=== PATIENT | female | born 1945 | race Caucasian/White ===

== ENCOUNTER 2017-10-29 08:37 | Day surgery (SDC) | payer MEDICARE, BC ==
--- NOTE | 2017-10-20 08:27 | HP ---
CC: Dr. Ruslan Martinez * ADMISSION HISTORY AND PHYSICAL: DATE OF ADMISSION: 10/29/17 ATTENDING SURGEON: Dr. Pete Guajardo.* (DICTATED BY CHLOE MATAMOROS) CHIEF COMPLAINT: Symptomatic cholelithiasis. HISTORY OF PRESENT ILLNESS: This is a 72-year-old female, who reports a 1- to 2 - year history of intermittent right upper quadrant abdominal pain. This typically occurs postprandially and especially after high-fat meals. She describes discomfort with some bloating, gassiness, and queasiness with radiation to the back. She denies fever, chills, nausea, vomiting, or change in the color of her urine. She does typically experience multiple loose stools with these episodes. An ultrasound in the office by Dr. De La Rosa did initially reveal a gallstone and subsequent repeat ultrasound ordered by done on 08/28/17 showed mild fatty changes of the liver consistent with steatosis. Also noted was a 3.2-cm gallstone increased in size from prior study of 2011. There were no sonographic signs of acute cholecystitis. The gallbladder wall was measured at 2.5 mm. Common bile duct was normal in size. Liver function tests had been done on 08/24/17 and were within normal limits. The patient was seen in the office by Dr. Guajardo on 09/16/17. She did have some mild right upper quadrant tenderness at that time, but has had no significant changes in the interim. He has discussed with her the indications for surgery, the risks, benefits, and alternatives. She understands the expected perioperative course and would like to proceed as scheduled with laparoscopic cholecystectomy. PAST MEDICAL HISTORY: Hypertension, hyperlipidemia, type 2 diabetes, nephrolithiasis, osteoarthritis, cervical radiculopathy, vertigo, history of hemorrhoids, carpal tunnel syndrome. She also recently underwent I and D of a left thumb abscess, where she also has a wart and is anticipating removal of the wart and carpal tunnel release in the near future with Dr. Condon. PAST SURGICAL HISTORY: Previous surgeries include tubal ligation, stereotactic left breast biopsy (for benign disease), lithotripsy for nephrolithiasis. No reported surgical or anesthesia complications. CURRENT MEDICATIONS: 1. Losartan/hydrochlorothiazide 50/12.5 once daily. 2. Amitriptyline 25 mg q. day. 3. Aspirin 81 mg q. day (she will hold preoperatively, her last dose being ). 4. Metformin 500 mg 1 tablet once daily. 5. Lovaza 1 g once daily. 6. Vitamin D3 5000 International Units once daily. 7. CoQ10 30 mg once daily. 8. Zinc 50 mg once daily. 9. Tramadol 50 mg q.6 hours p.r.n. (uses rarely). 10. Motrin 200 mg 2 tablets q. day p.r.n. for arthritis pain. DRUG ALLERGIES: PENICILLIN (rash) (she has taken amoxicillin without any problem). FAMILY HISTORY: Negative for anesthesia problems, bleeding, or clotting disorder. SOCIAL HISTORY: She is . She is a former smoker, who quit in 1982. She denied use of alcohol or recreational drugs. REVIEW OF SYSTEMS: General: No recent constitutional symptoms or acute illnesses. Weight has been stable. She did undergo a recent I and D of the left thumb abscess as noted above. Eyes: No recent changes. No history of glaucoma. Ears, Nose, Throat: No problems reported other than she has some lower teeth that she feels may need to be removed. She does use a full upper denture. Cardiovascular: No history of MT or angina. She is treated for hypertension. No history of murmur or palpitations. Respiratory: No history of asthma, chronic cough, or shortness of breath. GI: As above per HPI. Colonoscopy done within the past year with benign polyps removed and recommended followup in 3 years. : She is followed by Dr. De La Rosa for kidney stones. No recent problems reported. Endocrine: She had a history of thyroid nodules, which have been followed. She is type 2 diabetic, though on metformin only and most recent hemoglobin A1c had been in the 5 to 6 range. Neurological : No additions. Musculoskeletal: Osteoarthritis, carpal tunnel syndrome. No additions. Remainder of review of systems is negative. MANAGER RESEARCH DEVELOPMENT: She no longer has pelvic exams done. Her current mammogram is scheduled for 10/28/17. Her last breast exam was in the past 1 to 2 years with no interval problems reported. PHYSICAL EXAMINATION GENERAL: Well-nourished, well-developed mildly obese female, in no acute distress. VITAL SIGNS: Height 60 inches, weight 146 pounds, temperature 98.8, blood pressure 118/72, pulse 98, respirations 16. HEENT: Pupils are equal and round, reactive. EOMs intact. No conjunctival pallor or scleral icterus. Oropharynx: Teeth in good repair. No intraoral lesions. NECK: No lymphadenopathy or masses. Difficult to appreciate discrete thyroid nodules. LUNGS: Clear to auscultation. No rales or wheezes. HEART: Regular rate and rhythm. No murmur noted. BREASTS: Not examined. ABDOMEN: Soft with mild tenderness in the right upper quadrant, though negative Galindo's sign. Remainder of the abdomen is soft, nontender and without palpable masses or organomegaly. GENITALIA: Not done. RECTAL: Not done. BACK: No spinous process or CVA tenderness. EXTREMITIES: No edema. NEUROLOGICAL: Grossly intact. SKIN: Warm and dry. No suspicious rashes or lesions noted. IMPRESSION: Symptomatic cholelithiasis. PLAN: Laparoscopic cholecystectomy. CHLOE MATAMOROS [id number]/[facility] #: [id number] [facility]ITALSh[facility]
[~2017-10-29 08:37] MED LIST: Buffered Lidocaine 0.9% SYRIN* 5 ML/SYR SYRINGE INTRADERM ONE; Famotidine TAB* 20 MG PO ONE; Metoclopramide TAB* 10 MG PO ONE
[2017-10-29] MEDS ORDERED: Famotidine TAB* 20 MG ONE ×2 (08:53→09:08)
[2017-10-29] MEDS ORDERED: Metoclopramide TAB* 10 MG ONE ×2 (08:53→09:08)
[2017-10-29] MEDS ORDERED: ceFAZolin 2 GM PREMIX (*) 2 GM/50 ML BAG IVPB ONE (08:54)
[2017-10-29] MEDS ORDERED: Buffered Lidocaine 0.9% SYRIN* 5 ML/SYR SYRINGE ONE (09:08)
[2017-10-29] MEDS ORDERED: Midazolam* 1 MG/ML 5 ML VIAL (5 MG) ONE (09:51)
[2017-10-29] MEDS ORDERED: Propofol* 10 MG/ML 20 ML BTL IV PUSH ONE (09:51)
[2017-10-29] MEDS ORDERED: Cisatracurium* 2 MG/ML MDV 5 ML ONE (09:51)
[2017-10-29] MEDS ORDERED: Lidocaine 2% PF * 5 ML VIAL ONE (09:51)
[2017-10-29] MEDS ORDERED: Dexamethasone IV* 4 MG/ML 1 ML (4 MG) ONE (09:51)
[2017-10-29] MEDS ORDERED: Ondansetron INJ* 2 MG/ML VIAL ONE (09:51)
[2017-10-29] MEDS ORDERED: fentaNYL* 50 MCG/ML 2 ML VIAL (100 MCG VIAL) ONE (09:51)
[2017-10-29] MEDS ORDERED: Bupivacaine 0.25% SDV* 30 ML ONE (10:11)
[2017-10-29] MEDS ORDERED: EPHEDrine (Pressors)* 50 MG/ML VIAL ONE (10:49)
[2017-10-29] MEDS ORDERED: oxyCODONE/Acetamin 5/325 MG* TAB PO PRN (11:12)
[2017-10-29] MEDS ORDERED: Naloxone* 0.4 MG/ML 1 ML VIAL IV PRN (11:12)
[2017-10-29] MEDS ORDERED: fentaNYL* 50 MCG/ML 2 ML VIAL (100 MCG VIAL) IV PRN (11:12)
[2017-10-29] MEDS ORDERED: Ondansetron INJ* 2 MG/ML VIAL IV PRN (11:12)
[2017-10-29] MEDS ORDERED: Glycopyrrolate IV* 0.2 MG/ML 1 ML VIAL ONE (11:17)
[2017-10-29] MEDS ORDERED: Neostigmine Methylsulfate* 1 MG/ML 10 ML VIAL (1 mg/ml) ONE (11:17)
[2017-10-29] MEDS ORDERED: oxyCODONE/Acetamin 5/325 MG* TAB ONE (12:32)
[2017-10-29 13:06] VITALS: BP 135/74
--- NOTE | 2017-10-29 13:46 | OP ---
CC: Dr. Guajardo; Dr. Ruslan Martinez OPERATIVE REPORT: DATE OF OPERATION: 10/29/17 DATE OF : 43 SURGEON: Pete Guajardo MD PANEL SAW OPERATOR: MARINA Sosa. ANESTHESIOLOGIST: Dr. Hutchinson. ANESTHESIA: General anesthetic, local infiltration. PRE-OP DIAGNOSIS: Symptomatic cholelithiasis. POST-OP DIAGNOSIS: Symptomatic cholelithiasis. OPERATIVE PROCEDURE: Laparoscopic cholecystectomy. DESCRIPTION OF PROCEDURE: The patient was supine on the operative table. After adequate general anesthetic, compression stockings, Zeus Hugger warmer and intravenous antibiotics, the abdomen was prepped with antiseptic, draped in a sterile fashion. Local infiltrative anesthesia was administered. A small umbilical incision was created. Blunt port cannula was placed. Insufflation was carried out with carbon dioxide. Additional cannulae 5-mm right anterior axillary line and right subcostal and 12 mm right subxiphoid were placed through small stab wounds under direct vision. The gallbladder was tented upward and areolar tissue was taken down off the cystic duct and cystic artery which were readily doubly clipped and divided. Gallbladder was taken off the liver bed using scissor cautery. There was no spillage. The gallbladder was removed through the subxiphoid port which seemed to be large somewhat because of the size of the stones. Hemostasis was excellent. Pneumoperitoneum was allowed to escape. The cannulae were removed. The fascia of the two larger incisions was closed with 0 Vicryl and skin with 5-0 Vicryl in all cases followed by Steri-Strips. She tolerated the procedure well, was awakened and brought to Recovery in good condition. No complications. No drains. PATHOLOGIC SPECIMEN: Gallbladder. COUNTS: Sponge and instrument counts correct. ESTIMATED BLOOD LOSS: 10 mL. [id number]/[facility] #: [id number] MTDD
== END 2017-10-29 13:21 | disposition home or self-care (01) ==
LOC: OR 08:37
PROVIDERS: ATTEND Surgery
DX: K80.10 Calculus of gallbladder with chronic cholecystitis without obstruction (principal); K76.0 Fatty (change of) liver, not elsewhere classified; E11.9 Type 2 diabetes mellitus without complications; Z79.84 Long term (current) use of oral hypoglycemic drugs; I10 Essential (primary) hypertension; E78.5 Hyperlipidemia, unspecified; M19.90 Unspecified osteoarthritis, unspecified site; Z87.891 Personal history of nicotine dependence
CPT/HCPCS: 88304; A9270-GY; J0690; J1100; J2250; J2405; J2704; J2710; J3010

== ENCOUNTER 2018-03-23 08:11 | Day surgery (SDC) | payer MEDICARE, BC ==
--- NOTE | 2018-03-20 14:03 | HP ---
AMENDED REPORT NOW INCLUDES COSIGNER DESIGNATION - ESIGNED BEFORE ADJUSTMENT PREOPERATIVE HISTORY AND PHYSICAL: DATE OF SURGERY/ADMISSION: 03/23/18 DATE OF OFFICE VISIT/ENCOUNTER: 02/24/18 ATTENDING SURGEON: Katrina Condon MD * (DICTATED BY CHLOE BAUER) PROCEDURE: Right wrist carpal tunnel release. CHIEF COMPLAINT: Numbness and tingling, right hand. HISTORY OF PRESENT ILLNESS: This is a 72-year-old female, who has had numbness and tingling in her right hand for many, many years. It has gotten worse over time and she is starting to drop things. She feels numbness in her middle finger all the time. Symptoms used to be intermittent, but now they are more constant. She had a nerve test years ago, which was consistent with right carpal tunnel syndrome. She has failed conservative treatment including bracing and a cortisone injection and would like now to proceed with surgical intervention. PAST MEDICAL HISTORY: 1. Hypertension. 2. Hyperlipidemia. 3. Type 2 diabetes. 4. Nephrolithiasis. 5. Osteoarthritis. 6. Cervical radiculopathy. 7. Vertigo. 8. History of hemorrhoids. PAST SURGICAL HISTORY: 1. Tubal ligation. 2. Stereotactic left breast biopsy. 3. Lithotripsy for nephrolithiasis. 4. No reported surgical or anesthesia complications. CURRENT MEDICATIONS: 1. Amitriptyline HCl 25 mg daily. 2. Aspirin 81 mg daily. 3. CoQ10 30 mg daily. 4. Losartan potassium/hydrochlorothiazide 50 mg daily. 5. Lovaza 1 g twice daily. 6. Metformin HCl 500 mg twice a day. 7. Motrin 200 mg p.r.n. 8. Vitamin B6 100 mg daily. 9. Vitamin D3 5000 units every week. 10. Zinc 50 mg 1 tab with meals as needed. ALLERGIES: PENICILLIN causes a rash. FAMILY HISTORY: Noncontributory. SOCIAL HISTORY: The patient is retired. She is a former smoker. She quit in 1982. She denies the use of recreational drugs and does not drink alcohol. REVIEW OF SYSTEMS: Negative for general, cephalic, cardiovascular, respiratory , GI, , other musculoskeletal, and integumentary. Endocrine is positive for diabetes. Neurologic and hematologic are both negative. Infectious disease is negative for MRSA, hepatitis C, and HIV. PHYSICAL EXAMINATION GENERAL: Well-developed, well-nourished, 72-year-old female, in no acute distress. VITAL SIGNS: Height 5 feet 1 inch, weight 146 pounds, pulse rate 74, blood pressure 140/76. HEENT: Normocephalic, atraumatic. Pupils are equal, round, and reactive to light and accommodation. Throat is clear. NECK: Supple. No palpable lymph nodes. PULMONARY: Lungs are clear to auscultation bilaterally. No wheezes, rales, or rhonchi. CARDIOVASCULAR: Regular rate and rhythm. S1, S2. No murmurs, rubs, or gallops. No edema. ABDOMEN: Positive bowel sounds, soft, nontender. NEUROLOGIC: Alert and oriented x3. Cranial nerves II through XII are intact. MUSCULOSKELETAL: On exam of her right wrist and hand, there is mild atrophy noted at the thenar eminence. She has marked weakness trying to resist thumb abduction. She has decreased sensation at the median nerve distribution especially the middle finger and a positive Tinel's sign at the median nerve at the wrist. IMPRESSION: Right wrist carpal tunnel syndrome. PLAN: The patient is scheduled to undergo a right wrist carpal tunnel release with Dr. Condon on 03/23/18. She will return to the office 10 days after surgery for followup and suture removal. A prescription for tramadol HCl 50 mg was e-scribed to the patient's pharmacy for postoperative pain management. CHLOE BAUER [id number]/[facility] #: [id number] RENUKA
[~2018-03-23 08:11] MED LIST changes: -Buffered Lidocaine 0.9% SYRIN* 5 ML/SYR SYRINGE INTRADERM ONE; -Famotidine TAB* 20 MG PO ONE; +Lidocaine 1% INJ* 10 MG/ML 30 ML SDV ONE; -Metoclopramide TAB* 10 MG PO ONE
[2018-03-23] MEDS ORDERED: fentaNYL* 50 MCG/ML 2 ML VIAL (100 MCG VIAL) ONE (08:30)
[2018-03-23] MEDS ORDERED: Propofol* 10 MG/ML 20 ML BTL IV PUSH ONE (08:30)
[2018-03-23] MEDS ORDERED: Lidocaine 2% PF * 5 ML VIAL ONE (08:30)
[2018-03-23] MEDS ORDERED: Naloxone* 0.4 MG/ML 1 ML VIAL IV PRN (09:45)
[2018-03-23 09:47] VITALS: BP 147/64
--- NOTE | 2018-03-24 02:05 | OP ---
DATE OF OPERATION: 03/23/18 [facility] DATE OF : 43 SURGEON: Katrina Condon MD UNCLAIMED PROPERTY MANAGER: None. ANESTHESIA: Local MAC. PRE-OP DIAGNOSIS: Right carpal tunnel syndrome. POST-OP DIAGNOSIS: Right carpal tunnel syndrome. OPERATIVE PROCEDURE: Right carpal tunnel release. ESTIMATED BLOOD LOSS: Zero. TOURNIQUET TIME: Six minutes. INDICATION FOR PROCEDURE: Ninoska is a 72-year-old female with numbness and tingling in the median nerve distribution of the right hand. She presents for right carpal tunnel release. DESCRIPTION OF PROCEDURE: The patient was brought to the operating room and was given a sedation anesthetic and local infiltration of 10 cc of 1% plain lidocaine in the palm of her right hand. Skin of the right hand and forearm was prepped and draped in the usual sterile fashion. The hand and forearm were exsanguinated and the tourniquet elevated to 250 mmHg. A longitudinal incision was made in the palm in line with the ring finger. We dissected sharply through the subcutaneous tissue down to the transverse carpal ligament. The ligament was divided sharply with a knife and then more proximally with the scissors. The nerve was dissected free from the surrounding tissue and there was an area of moderate compression at the mid portion of the ligament. The wound was irrigated and the skin edges reapproximated with 4-0 nylon suture. The wound was dressed with Xeroform, 4x4, Webril, and an Zackary wrap. The patient tolerated the procedure well and was brought to the recovery room in good condition. [id number]/[facility] #: [id number] MTDD
[2018-03-25] MEDS ORDERED: Buffered Lidocaine 0.9% SYRIN* 5 ML/SYR SYRINGE INTRADERM ONE (06:00)
== END 2018-03-23 10:06 | disposition home or self-care (01) ==
LOC: OREAST 08:11
PROVIDERS: ATTEND Orthopaedic Surgery
DX: G56.01 Carpal tunnel syndrome, right upper limb (principal); Z87.891 Personal history of nicotine dependence; E11.9 Type 2 diabetes mellitus without complications; Z79.84 Long term (current) use of oral hypoglycemic drugs; I10 Essential (primary) hypertension; E78.5 Hyperlipidemia, unspecified; M19.90 Unspecified osteoarthritis, unspecified site; I73.00 Raynaud's syndrome without gangrene
CPT/HCPCS: J2704; J3010

== ENCOUNTER 2019-01-21 09:51 | Emergency (ER) | payer MEDICARE, BC ==
[2019-01-21 10:20] LABS: ABS Basophils 0.1 10^3/ul (0-0.2); ABS Eosinophils 0.1 10^3/ul (0-0.6); ABS Lymphocytes 0.8 10^3/ul (1.0-4.8); ABS Monocytes 0.4 10^3/ul (0-0.8); ABS Neutrophils 8.3 10^3/ul (1.5-7.7); Eosinophil % 1.1 %; Hematocrit 51 % (35-47); Hemoglobin 17.1 g/dL (12.0-16.0); Lymphocyte % 8.2 %; Mean Corpuscular HGB Conc 33 g/dL (31-36); Mean Corpuscular Hemoglobin 32 pg (27-31); Mean Corpuscular Volume 98 fL (80-97); Mean Platelet Volume 9.1 fL (7.4-10.4); Nucleated Red Blood Cells % 0.2; Platelet Count 206 10^3/uL (150-450); Red Blood Count 5.27 10^6 /uL (3.70-4.87); Red Cell Distribution Width 17 % (10-15); White Blood Count 9.7 10^3/uL (3.5-10.8)
--- OUTSIDE RECORDS SUMMARY | 2019-01-21 10:29 | XMS REPORT | Continuity of Care Document ---
:1945 External Reference #:[id number] Author Name Santa Ball Care Team Providers Name Role Phone Ruslan Martinez D.O. Primary Care Physician Unavailable Payers Date Identification Numbers Payment Provider Subscriber Effective: 2009 Policy Number: [id number] Medicare Ninoska Nguyen PayID: [id number] [address] [place] [address] Policy Number: [id number] [facility] Ninoska Nguyen Group Number: [id number] [address] PayID: [id number] [place] [address] Family History Date Family Member(s) Observation Comments General Diabetes Type II General Throat Cancer General Heart Disease General Lung Cancer Father due to Lung Cancer () - At age 72 Mother due to Pneumonia () - at age 88 Siblings 1 Social History Type Date Description Comments Sex Unknown Lives With Occupation Currently Working ETOH Use Occasionally consumes alcohol Recreational Drug Use Never Used Drugs Tobacco Use Start: Unknown End: Patient is a former smoker Unknown Smoking Status Reviewed: 12/16/18 Patient is a former smoker Exercise Type/Frequency Exercises regularly Allergies, Adverse Reactions, Alerts Active Allergies Reaction Severity Comments Date Penicillin rash 03/08/2014 Medications Active Medications SIG Qnty Indications Ordering Date Provider Adv Diskus 1 by mouth twice a 60units R06.00 Yariel Mireles MD 2018 day 250-50mcg/Dose Aerosol Oxygen please use o2 at 1units R06.00 Yariel Mireles MD 11/15/2018 Misc 2l/min during exertion and at night. pls provide pt with portable o2 concentrator Oxygen please use o2 at 1units R06.00 Yariel Mireles MD 11/15/2018 Misc 2l/min during exertion and at night. pls provide pt with portable o2 concentrator Tramadol HCL 1 tab by mouth 15tabs Katrina Condon, 02/24/2018 50mg every 4-6 hours as M.DAvtar Tablets needed pain - do not use until after surgery Bactrim take one tablet Unknown 400-80mg every 12 hours for Tablets 10 days Mucinex twice a day Unknown 600mg Tablets ER 12HR Claritin 1 by mouth every Unknown 10mg day Capsules Prednisone Take 10 Tablets By Unknown 5mg Mouth Day One Then Tablets Decrease By One Tablet Daily Until Completed Motrin Ib as needed 60tabs Unknown 200mg Tablets Metformin HCL 1 by mouth twice a Unknown 500mg day Tablets Lovaza 1 by mouth twice a 180caps Unknown 1gm Capsules day Zinc take one tab with 90tabs Unknown 50mg Tablets meals as needed Co Q-10 1 by mouth every Unknown 30mg Capsules day Vitamin D-3 by mouth every week 8tabs Unknown 5000Unit for 8 weeks Tablets Aspirin 1 by mouth every Unknown 81mg Tablets day Amitriptyline HCL 1 by mouth every 30tabs Unknown night at bedtime 25mg Tablets Losartan 1 by mouth every Unknown Potassium/Hydrochlor day othiazide 50-12.5mg Tablets History Medications Hydrocodone-Acetaminophen 1 tablet by 14tabs Karlene Matthew 10/19/2017 - 5-325mg Tablets mouth every 4-6 MD aMrio Unknown hours as needed for moderately severe pain Cipro 250mg Take on tab bid 10tabs Katrina 2017 - Yvonne Condon M.D. 09/30/2017 Vitamin B-6 1 by mouth every 30tabs Unknown - 100mg Tablets day 12/15/2018 Flexeril 1 tablet three 30tabs Unknown - 5mg Tablets times a day as 07/27/2016 needed Ativan 1mg 1/2-1 by mouth 10tabs Unknown - Tablets twice a day as 07/27/2016 needed Zostavax 1 dose s/c 1units Unknown - 44473Xxi/0.65ML Solution Rec 03/08/2014 Albuterol Sulfate HFA Session, - 108(90Base) mcg/Act ERIKA Arzate 12/15/2018 Aerosol Medications Administered in Office Medication SIG Qnty Indications Ordering Provider Date Depomedrol 40MG Katrina Condon M.D. 08/11/2016 Injection Vital Signs Date Vital Result Comment 12/16/2018 8:17am Height 61 inches 5'1" Weight 145.50 lb Heart Rate 84 /min BP Systolic Sitting 142 mmHg Lue reg cuff BP Diastolic Sitting 82 mmHg Lue reg cuff Respiratory Rate 18 /min O2 % BldC Oximetry 92 % On Ra BMI (Body Mass Index) 27.5 kg/m2 11/15/2018 10:41am Height 61 inches 5'1" Weight 141.00 lb Heart Rate 88 /min BP Systolic Sitting 140 mmHg Lue regular cuff BP Diastolic Sitting 88 mmHg Lue regular cuff Respiratory Rate 16 /min O2 % BldC Oximetry 94 % BMI (Body Mass Index) 26.6 kg/m2 Neck Circumference in inches 13.75 04/29/2018 10:01am Heart Rate 84 /min BP Systolic Sitting 132 mmHg BP Diastolic Sitting 74 mmHg Respiratory Rate 16 /min Body Temperature 97.2 F 04/01/2018 10:07am Heart Rate 76 /min BP Systolic 138 mmHg BP Diastolic 78 mmHg Respiratory Rate 12 /min Body Temperature 97.8 F Pain Level 0 02/24/2018 2:36pm Height 61 inches 5'1" Weight 146.00 lb Heart Rate 74 /min BP Systolic 140 mmHg BP Diastolic 76 mmHg Respiratory Rate 12 /min Pain Level 0 BMI (Body Mass Index) 27.6 kg/m2 11/06/2017 1:14pm Heart Rate 72 /min BP Systolic Sitting 140 mmHg BP Diastolic Sitting 84 mmHg Respiratory Rate 18 /min Body Temperature 97.6 F 10/19/2017 9:41am Height 60 inches 5'0" Weight 147.00 lb Heart Rate 86 /min BP Systolic 150 mmHg BP Diastolic 80 mmHg Respiratory Rate 16 /min Body Temperature 97.4 F BMI (Body Mass Index) 28.7 kg/m2 09/30/2017 1:32pm Height 60 inches 5'0" Weight 144.00 lb Heart Rate 83 /min BP Systolic 142 mmHg BP Diastolic 80 mmHg Respiratory Rate 14 /min Body Temperature 97.9 F Pain Level 0 BMI (Body Mass Index) 28.1 kg/m2 09/23/2017 8:51am Height 60 inches 5'0" Weight 144.00 lb Heart Rate 81 /min BP Systolic 128 mmHg BP Diastolic 62 mmHg Respiratory Rate 16 /min Body Temperature 97.6 F Pain Level 0 BMI (Body Mass Index) 28.1 kg/m2 09/16/2017 11:13am Height 60 inches 5'0" Weight 146.00 lb Heart Rate 98 /min BP Systolic 118 mmHg BP Diastolic 72 mmHg Respiratory Rate 16 /min Body Temperature 98.8 F BMI (Body Mass Index) 28.5 kg/m2 08/11/2016 9:33am Height 59 inches 4'11" Weight 150.00 lb Heart Rate 76 /min Respiratory Rate 18 /min Pain Level 0 BMI (Body Mass Index) 30.3 kg/m2 07/28/2016 7:56am Height 59 inches 4'11" Weight 150.00 lb Heart Rate 64 /min BP Systolic Sitting 134 mmHg BP Diastolic Sitting 76 mmHg Respiratory Rate 16 /min Pain Level 10 BMI (Body Mass Index) 30.3 kg/m2 03/08/2014 9:50am Height 59.5 inches 4'11.50" Weight 147.75 lb Heart Rate 88 /min BP Systolic Sitting 130 mmHg BP Diastolic Sitting 66 mmHg Pain Level 0 BMI (Body Mass Index) 29.3 kg/m2 Results Test Date Facility Test Result H/L Range Note Basic Metabolic 12/22/2018 [facility] Potassium 4.3 mmol/L N 3.5-5.0 Panel [address] [place] [address] [phone] Chloride 110 mmol/L N 101-111 Co2 Carbon Dioxide 24 mmol/L N 22-32 Glucose 142 mg/dL High 70-100 Blood Urea Nitrogen 20 mg/dL N 6-24 Creatinine 1.01 mg/dL High 0.51-0.95 BUN/Creatinine Ratio 19.8 N 8-20 Calcium 10.3 mg/dL N 8.6-10.3 Egfr Non- 53.6 >60 Egfr 64.8 >60 1 Sodium 146 mmol/L High 135-145 Anion Gap 12 mmol/L High 2-11 Laboratory test 12/22/2018 [facility] Rheumatoid Factor < 10 IU/ mL N <[address] [place] [address] [phone] Anti Ssa/Ro <pending> Anti SSB LA <pending> Nuclear AB (Radha) By Ifa Igg <pending> Basic Metabolic Panel 12/10/2018 [facility] Sodium 144 mmol/L N 135-[address] [place] [address] [phone] Potassium 4.1 mmol/L N 3.5-5.0 Chloride 108 mmol/L N 101-111 Co2 Carbon Dioxide 25 mmol/L N 22-32 Anion Gap 11 mmol/L N 2-11 Glucose 134 mg/dL High 70-100 Blood Urea Nitrogen 19 mg/dL N 6-24 Creatinine 0.88 mg/dL N 0.51-0.95 BUN/Creatinine Ratio 21.6 High 8-20 Calcium 9.6 mg/dL N 8.6-10.3 Egfr Non- 62.8 >60 Egfr 76.0 >60 2 Laboratory test 03/23/2018 [facility] Point of Care 90 mg/dL N 70-100 [address] [place] [address] [phone] Laboratory test 10/29/2017 [facility] Surgical SEE RESULT [address] [place] [address] [phone] Laboratory test 10/29/2017 [facility] Point of Care 102 mg/dL High 70-100 [address] [address] [phone] 1 Because ethnic data is not always readily available, this report includes an eGFR for both -Americans and non- Americans. The National Kidney Disease Education Program (NKDEP) does not endorse the use of the MDRD equation for patients that are not between the ages of 18 and 70, are , have extremes of body size, muscle mass, or nutritional status, or are non- or non-. According to the National Kidney Foundation, irrespective of diagnosis, the stage of the disease is based on the level of kidney function: Stage Description GFR(mL/min/1.73 m(2)) 1 Kidney damage with normal or decreased GFR 90 2 Kidney damage with mild decrease in GFR 60-89 3 Moderate decrease in GFR 30-59 4 Severe decrease in GFR 15-29 5 Kidney failure <15 (or dialysis) 2 Because ethnic data is not always readily available, this report includes an eGFR for both -Americans and non- Americans. The National Kidney Disease Education Program (NKDEP) does not endorse the use of the MDRD equation for patients that are not between the ages of 18 and 70, are , have extremes of body size, muscle mass, or nutritional status, or are non- or non-. According to the National Kidney Foundation, irrespective of diagnosis, the stage of the disease is based on the level of kidney function: Stage Description GFR(mL/min/1.73 m(2)) 1 Kidney damage with normal or decreased GFR 90 2 Kidney damage with mild decrease in GFR 60-89 3 Moderate decrease in GFR 30-59 4 Severe decrease in GFR 15-29 5 Kidney failure <15 (or dialysis) 3 Websphere Administrator: [id number] 4 SEE RESULT BELOW Name: NINOSKA NGUYEN : [address]: Pete Guajardo MD Acct: [id number] Unit: [id number] AGE: 72 Location: OR Re10/29/17 SEX: F Status: ALLA JULIO SPEC: [id number] MICHELLE: 10/29/17- [facility] DR: Pete Guajardo MD REQ: [id number] RECD: 10/29/17-1220 STATUS: SOUT _ ORDERED: LEVEL 3 FINAL DIAGNOSIS Gallbladder, cholecystectomy: -- Chronic cholecystitis with cholelithiasis. PRE-OPERATIVE DIAGNOSIS Calculus of gallbladder without obstruction GROSS DESCRIPTION The specimen is received in formalin labeled, Gallbladder, and consists of a 9.0 x 2.5 x 0.8 cm intact gallbladder. The serosa is glistening yellow-pink to blue-green. The wall thickness averages less than 0.1 cm and is thinned by an atypical dilation. The mucosa is granular to velvety yellow-pink. The lumen contains scant yellow-green viscid bile and a single 2.8 x 2.0 x 1.5 cm green hard ovoid cholelith. Paint Laboratory Technician sections are submitted in one cassette. Signed (signature on file) Terell Quintero MD [id number] END OF REPORT DEPARTMENT OF PATHOLOGY, [address] [place] [address] Terell Quintero M.D. Director [facility] # [id number] 5 Websphere Administrator: [id number] Procedures Date Code Description Status 12/22/2018 79772 ECHO Transthoracic, Real-Time 2D With Doppler And Color Completed Flow 11/15/2018 70268 Pulmonary Stress [facility] Measurement Heart Rate, Completed Oximetry 10/08/2018 50994 ECHO Transthoracic, Real-Time 2D With Doppler And Color Completed Flow 10/08/2018 39168 ECHO Transthoracic, Real-Time 2D With Doppler And Color Completed Flow 09/29/2018 39911 Diffusing Capacity Completed 09/29/2018 50349 Plethysmography Determination Lung Volumes & Per Airway Completed Resist 09/29/2018 35226 Pulmonary Function><Bronchodil Completed 03/23/2018 90405 Carpal Tunnel Release Completed 10/29/2017 53233 Laparoscopy Cholecystectomy Completed 10/29/2017 20503 Laparoscopy Cholecystectomy Completed 09/23/2017 73132 Drain Abscess Finger Simple Completed 08/11/2016 Injection, Carpal Tunnel Completed 09/01/2013 21901 Holter Monitor Review (24 hr)dr foley & kirby only Completed Encounters Type Date Location Provider Dx Diagnosis Office Visit 12/16/2018 Pulmonology And Yariel Mireles MD R06.00 Dyspnea, 8:30a Sleep Services Of unspecified Office Copy Selector Office Visit 11/15/2018 Pulmonology And Yariel Mireles MD R06.00 Dyspnea, 11:20a Sleep Services Of unspecified Office Copy Selector R91.8 Other nonspecific abnormal finding of lung field J98.4 Other disorders of lung Office Visit 02/24/2018 2:45p Orthopedic Katrina G56.01 Carpal tunnel [facility] C[facility] syndrome, right C.M.A. upper limb Office Visit 09/23/2017 8:30a Orthopedic Katrina L02.512 Cutaneous [facility] abscess of left C.M.A. hand B07.9 Viral wart, unspecified Office Visit 09/16/2017 11:15a Surgical Pete Mayfield K80.10 Calculus [facility] gallbladder w [facility] chronic cholecyst w/o obstruction Office Visit 08/11/2016 9:45a Orthopedic Katrina G56.01 Carpal tunnel [facility] syndrome, right C.M.A. upper limb M75.101 Unsp rotatr-cuff tear/ruptr of right shoulder, not trauma Office Visit 07/28/2016 8:00a Orthopedic Katrina Condon M25.511 Pain in right Services Charbel Dahl shoulder C.M.A. G56.01 Carpal tunnel syndrome, right upper limb M75.101 Unsp rotatr-cuff tear/ruptr of right shoulder, not trauma Office Visit 03/08/2014 9:40a Neurosurgery Ntae Mendenhall 721.0 Spondylosis Services [facility] Johnson M.D. 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 I will send a connective tissue panel 2nd ot the Raynaud's.Follow up:1 month
--- OUTSIDE RECORDS SUMMARY | 2019-01-21 10:29 | XMS REPORT | Continuity of Care Document ---
:1945 External Reference #:[id number] Author Name LindaJose Aa Care Team Providers Name Role Phone Ruslan Martinez D.O. Primary Care Physician Unavailable Payers Date Identification Numbers Payment Provider Subscriber Effective: 2009 Policy Number: [id number] Medicare Ninoska Nguyen PayID: [id number] [address] [place] [address] Policy Number: [id number] [facility] Ninoska Nguyen Group Number: [id number] [address] PayID: [id number] [place] [address] Family History Date Family Member(s) Observation Comments General Diabetes Type II General Throat Cancer General Heart Disease General Lung Cancer Father due to Lung Cancer () - At age 72 Mother due to Pneumonia () - at age 88 Siblings 1 Social History Type Date Description Comments Sex Unknown Lives With Occupation Retired from [employer] ETOH Use Occasionally consumes alcohol Recreational Drug Use Never Used Drugs Tobacco Use Start: Unknown End: Patient is a former smoker Unknown Smoking Status Reviewed: 12/30/18 Patient is a former smoker Exercise Type/Frequency Exercises regularly Allergies, Adverse Reactions, Alerts Active Allergies Reaction Severity Comments Date Penicillin rash 03/08/2014 Medications Active Medications SIG Qnty Indications Ordering Date Provider Furosemide 1 by mouth every 7tabs I50.810 Epifanio Louie, 12/30/2018 20mg day DO FACC Tablets Advair Diskus 1 by mouth twice a 60units R06.00 Yariel Mireles MD 2018 day 250-50mcg/Dose Aerosol Oxygen please use o2 at 1units R06.00 Yariel Mireels MD 11/15/2018 Misc 2l/min during exertion and at night. pls provide pt with portable o2 concentrator Oxygen please use o2 at 1units R06.00 Yariel Mireles MD 11/15/2018 Misc 2l/min during exertion and at night. pls provide pt with portable o2 concentrator Tramadol HCL 1 tab by mouth 15tabs Katrina Condon, 02/24/2018 50mg every 4-6 hours as M.D. Tablets needed pain - do not use until after surgery Biotin 1 tabs in evening Unknown 1000mcg Tablets Motrin Ib as needed 60tabs Unknown 200mg Tablets Metformin HCL 1 by mouth twice a Unknown 500mg day Tablets Lovaza 1 by mouth once a 180caps Unknown 1gm Capsules day Zinc take one tab with 90tabs Unknown 50mg Tablets meals as needed Co Q-10 1 by mouth every Unknown 30mg Capsules day Vitamin D-3 by mouth every week 8tabs Unknown 5000Unit for 8 weeks Tablets Aspirin 1 by mouth every Unknown 81mg Tablets day DR Amitriptyline HCL 1 by mouth every 30tabs Unknown night at bedtime 25mg Tablets Losartan 1 by mouth every Unknown Potassium/Hydrochlor day othiazide 50-12.5mg Tablets History Medications Hydrocodone-Acetaminophen 1 tablet by 14tabs Karlene Matthew 10/19/2017 - 5-325mg Tablets mouth every 4-6 MD Mario Unknown hours as needed for moderately severe pain Cipro 250mg Take on tab bid 10tabs Katrina 2017 - Tablets Hesham Condon 09/30/2017 Vitamin B-6 1 by mouth every 30tabs Unknown - 100mg Tablets day 12/15/2018 Flexeril 1 tablet three 30tabs Unknown - 5mg Tablets times a day as 07/27/2016 needed Ativan 1mg 1/2-1 by mouth 10tabs Unknown - Tablets twice a day as 07/27/2016 needed Zostavax 1 dose s/c 1units Unknown - 59283Xpn/0.65ML Solution Rec 03/08/2014 Albuterol Sulfate HFA Session, - 108(90Base) mcg/Act ERIKA Arzate 12/15/2018 Aerosol Prednisone Take 10 Tablets Unknown - 5mg Tablets By Mouth Day One 12/29/2018 Then Decrease By One Tablet Daily Until Completed Claritin 1 by mouth every Unknown - 10mg Capsules day 12/29/2018 Mucinex twice a day Unknown - 600mg Tablets ER 12HR 12/29/2018 Bactrim take one tablet Unknown - 400-80mg Tablets every 12 hours 12/29/2018 for 10 days Medications Administered in Office Medication SIG Qnty Indications Ordering Provider Date Depomedrol 40MG Katrina Condon M.D. 08/11/2016 Injection Vital Signs Date Vital Result Comment 12/30/2018 3:15pm Height 61 inches 5'1" Weight 152.00 lb Clothes/shoes Heart Rate 82 /min Radial BP Systolic 142 mmHg Lue reg cuff sit BP Diastolic 80 mmHg Lue reg cuff sit BP Systolic Sitting 130 mmHg Lue reg cuff std BP Diastolic Sitting 76 mmHg Lue reg cuff std BP Systolic Standing 136 mmHg Rue reg cuff sit BP Diastolic Standing 80 mmHg Rue reg cuff sit BMI (Body Mass Index) 28.7 kg/m2 Ejection Fraction 60-65% Echo 10/08/2018 12/16/2018 8:17am Height 61 inches 5'1" Weight [...] Result H/L Range Note Basic Metabolic 12/22/2018 [facility] Potassium 4.3 mmol/L N 3.5-5[place]0 [place] [address] [phone] Chloride 110 mmol/L N 101-111 Co2 Carbon Dioxide 24 mmol/L N 22-32 Glucose 142 mg/dL High 70-100 Blood Urea Nitrogen 20 mg/dL N 6-24 Creatinine 1.01 mg/dL High 0.51-0.95 BUN/Creatinine Ratio 19.8 N 8-20 Calcium 10.3 mg/dL N 8.6-10.3 Egfr Non- 53.6 >60 Egfr 64.8 >60 1 Sodium 146 mmol/L High 135-145 Anion Gap 12 mmol/L High 2-11 Scleroderma AB 12/22/2018 [facility] Scleroderma Ab <0.2 U 2 (SCL70) [place] [address] [phone] Laboratory test 12/22/2018 [facility] Rheumatoid Factor < 10 IU/ mL N <15 [place] [address] [phone] Anti Ssa/Ro <0.2 U 3 Anti SSB LA <0.2 U 4 Nuclear AB 12/22/2018 [facility] Nuclear Ab Positive Abnormal 5 (Radha) By If[facility] (Radha) by Ifa, >=1:25 <[place] [address] IgG NOTE> [phone] Radha Titer: >=1:2560 Radha Pattern: Centromere 6 Basic Metabolic Panel 12/10/2018 [facility] Sodium 144 mmol/L N 135-145 [place] [address] [phone] Potassium 4.1 mmol/L N 3.5-5.0 Chloride 108 mmol/L N 101-111 Co2 Carbon Dioxide 25 mmol/L N 22-32 Anion Gap 11 mmol/L N 2-11 Glucose 134 mg/dL High 70-100 Blood Urea Nitrogen 19 mg/dL N 6-24 Creatinine 0.88 mg/dL N 0.51-0.95 BUN/Creatinine Ratio 21.6 High 8-20 Calcium 9.6 mg/dL N 8.6-10.3 Egfr Non- 62.8 >60 Egfr 76.0 >60 7 Laboratory test 03/23/2018 [facility] Point of Care 90 mg/dL N 70-100 [address] [place] [address] [phone] Laboratory test 10/29/2017 [facility] Surgical SEE RESULT [address] [place] [address] [phone] Laboratory test 10/29/2017 [facility] Point of Care 102 mg/dL High 70-100 [address] Glucose [place], [place] [address] [phone] 1 Because ethnic data is not always [...] 5 Kidney failure <15 (or dialysis) 2 REFERENCE VALUE <1.0 (Negative) Test Performed by: [facility] [employer] [address] [place] [phone] 3 REFERENCE VALUE <1.0 (Negative) Test Performed by: [facility] [employer] [place] [address] 4 REFERENCE VALUE <1.0 (Negative) Test Performed by: [facility] [employer] [address] [place] [address] 5 Positive >=1:2560 REFERENCE VALUE <1:80 (Negative) 6 Test Performed by: [facility] [employer] [address] [place] [address] 7 Because ethnic data is not always readily [...] 15-29 5 Kidney failure <15 (or dialysis) 8 Rapier Insertion Loom Fixer: [id number] 9 SEE RESULT BELOW Name: NGUYEN,NINOSKA L : [address]: Pete Guajardo MD Acct: [id number] Unit: [id number] AGE: 72 Location: OR Re10/29/17 SEX: F Status: [facility] SPEC: [id number] MICHELLE: 10/29/17- [facility] DR: Pete Guajardo MD REQ: [id number] RECD: 10/29/170 STATUS: SOUT _ ORDERED: LEVEL 3 FINAL [...] x 1.5 cm green hard ovoid cholelith. Irrigation Equipment Installer sections are submitted in one cassette. Signed (signature on file) Terell Quintero MD 1120 END OF REPORT DEPARTMENT OF PATHOLOGY, [address] [place] [address] Terell Quintero M.D. Director [facility] # [id number] 10 Rapier Insertion Loom Fixer: [id number] Procedures Date Code Description Status 12/30/2018 30803 EKG Tracing & Interpretation Completed 12/22/2018 21814 ECHO Transthoracic, Real-Time 2D With Doppler And Color Completed Flow 12/22/2018 11539 ECHO Transthoracic, Real-Time 2D With Doppler And Color Completed Flow 11/15/2018 32649 [facility] Measurement Heart Rate, Completed Oximetry 10/08/2018 02096 ECHO Transthoracic, Real-Time 2D With Doppler And Color Completed Flow 10/08/2018 32332 ECHO Transthoracic, Real-Time 2D With Doppler And Color Completed Flow 09/29/2018 09663 Diffusing Capacity Completed 09/29/2018 68017 Plethysmography Determination Lung Volumes & Per Airway Completed Resist 09/29/2018 43497 Pulmonary Function><Bronchodil Completed 03/23/2018 34342 Carpal Tunnel Release Completed 10/29/2017 58843 Laparoscopy Cholecystectomy Completed 10/29/2017 17526 Laparoscopy Cholecystectomy Completed 09/23/2017 80600 Drain Abscess Finger Simple Completed 08/11/2016 Injection, Carpal Tunnel Completed 09/01/2013 99283 Holter Monitor Review (24 hr)dr foley & interp only Completed Encounters Type Date Location Provider Dx Diagnosis Office Visit 12/16/2018 Pulmonology And Yariel Mireles MD R06.00 Dyspnea, 8:30a Sleep Services Of unspecified Drying Equipment Operator Office Visit 11/15/2018 Pulmonology And Yariel Mireles MD R06.00 Dyspnea, 11:20a [facility] Services Of unspecified Drying Equipment Operator R91.8 Other nonspecific abnormal finding of lung field J98.4 Other disorders of lung Office Visit 02/24/2018 2:45p Orthopedic Katrina G56.01 Carpal tunnel [facility] Condon syndrome, right C.M.A. upper limb Office Visit 09/23/2017 8:30a Orthopedic Katrina L02.512 Cutaneous [facility] Condon abscess of left C.M.A. hand B07.9 Viral wart, unspecified Office Visit 09/16/2017 11:15a Surgical Pete Johnson80.10 [facility] Gu[facility]ardo gallbladder w Drying Equipment Operator chronic cholecyst w/o obstruction Office Visit 08/11/2016 9:45a Orthopedic Katrina G56.01 Carpal tunnel [facility] Condon syndrome, right C.M.A. upper limb M75.101 Unsp rotatr-cuff tear/ruptr of right shoulder, not trauma Office Visit 07/28/2016 8:00a Orthopedic Katrina Condon, M25.511 Pain in right [facility] shoulder CMook G56.01 Carpal tunnel syndrome, right upper limb M75.101 Unsp rotatr-cuff tear/ruptr of right shoulder, not trauma Office Visit 03/08/2014 9:40a Neurosurgery Nate Mendenhall 721.0 Spondylosis [facility] Johnson M.D. 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
[2019-01-21 10:34] LABS: INR 1.14 (0.82-1.09)
[2019-01-21] MEDS ORDERED: Aspirin 81 mg CHEW TAB* 81 MG TAB.CHEW PO ONE (10:36)
--- NOTE | 2019-01-21 10:37 | ED ---
HPI Chest Pain - HPI Summary HPI Summary: 73-year-old female presents with chest pain today. States that yesterday had a cauterization done to check right heart pressures. She states that she felt okay yesterday but that last night developed chest pain last night. She states that it is sharp pain that radiates up into her neck and into her back. She states she is short of breath. She denies any cough. No fevers. No abdominal pain nausea vomiting. hx of sob but no hx of chest pain. She is not on blood thinners. has history of dm and scleroderma and pulmonary artery hypertension. fam hx of cardiac disease. was a smoker. - History of Current Complaint Chief Complaint: EDChestPainROMI Time Seen by Provider: 01/21/19 10:05 - Allergy/Home Medications Allergies/Adverse Reactions: Allergies Allergy/AdvReac Type Severity Reaction Status Date / Time Penicillins Allergy RASH/REACTION Verified 03/23/18 08:30 A CHILD Home Medications: Home Medications Acetaminophen [Acetaminophen Extra Strength] 500 mg PO Q6HR PRN 01/21/19 [ History Confirmed 01/21/19] Albuterol inh POWDER (NF) [Proair Respiclick] 2 puff INH Q6HR PRN 01/21/19 [ History Confirmed 01/21/19] Aspirin EC TAB* [Ecotrin EC Low Dose 81 MG*] 81 mg PO DAILY 01/21/19 [History Confirmed 01/21/19] Aspirin EC TAB* [Ecotrin EC Low Dose 81 MG*] 81 mg PO DAILY 01/21/19 [History Confirmed 01/21/19] Fluticasone-Salmeterol 250-50* [Advair Diskus 250-50*] 1 puff INH BID 01/21/19 [ History Confirmed 01/21/19] Losartan/Hydrochlorothiazide [Losartan Potassium/Hydroc 50-12.5 mg] 1 tab PO DAILY 01/21/19 [History Confirmed 01/21/19] Arrhj-5-Jysn Ethyl Esters (NF) [Lovaza (NF)] 1 cap PO DAILY 01/21/19 [History Confirmed 01/21/19] Spironolactone (NF) [Spironolactone 50 MG (NF)] 50 mg PO DAILY 01/21/19 [ History Confirmed 01/21/19] Torsemide TAB* [Demadex*] 20 mg PO DAILY 01/21/19 [History Confirmed 01/21/19] Ubidecarenone [Co Q-10] 200 mg PO DAILY 01/21/19 [History Confirmed 01/21/19] Vitamin B Complex CAP* [B Complex CAP*] 1 cap PO DAILY 01/21/19 [History Confirmed 01/21/19] Zinc Gluconate [Zinc] 50 mg PO DAILY 01/21/19 [History Confirmed 01/21/19] metFORMIN* [Glucophage 500 MG TAB *] 500 mg PO BID 01/21/19 [History Confirmed 01/21/19] traMADol TAB* [Ultram*] 50 mg PO DAILY PRN 01/21/19 [History Confirmed 01/21/19] PMH/Surg Hx/FS Hx/Imm Hx Endocrine/Hematology History: Reports: Hx Diabetes - TYPE II- ON ORAL MEDICATION , Hx Thyroid Disease - NODULES Cardiovascular History: Reports: Hx Hypertension - ON MEDICATION FOR, Hx Peripheral Vascular Disease - LEFT LOWER EXT VARICOSE VEIN, RIGHT LEG HAS VEIN ISSUE PER PT, Hx Rheumatic Fever - A CHILD Denies: Hx Pacemaker/ICD, Other Cardiovascular Problems/Disorders Respiratory History: Denies: Other Respiratory Problems/Disorders GI History: Reports: Other GI Disorders - DIARRHEA- SOMETIMES 1/2 HOUR AFTER EATING, Cholecystectomy 10/21 History: Reports: Hx Kidney Stones - HX OF, Other Problems/Disorders - Stress incontinence, frequent urination Denies: Hx Renal Disease Musculoskeletal History: Reports: Hx Arthritis - OSTEOARTHRITIS, UPPER BACK, LEFT HAND, Hx Bursitis - LEFT HIP, Hx Tendonitis - Right carpal tunnel syndrome , Other Musculoskeletal History - TORN ROTATOR CUFF-RIGHT, RIGHT KNEE MENISCUS TEAR Sensory History: Reports: Hx Contacts or Glasses - GLASSES Denies: Hx Hearing Aid Opthamlomology History: Reports: Hx Contacts or Glasses - GLASSES Neurological History: Reports: Hx Headaches - HISTORY OF MUSCULAR CONTRACTION HEADACHES, Other Neuro Impairments/Disorders - VERTIGO HX Psychiatric History: Denies: Hx Panic Disorder - Surgical History Surgery Procedure, Year, and Place: TUBAL LIGATION 1976. D&C. KIDNEY STONE 2012. LEFT BREAST SURGERY REMOVED CLUSTER PUT IN BREAST CLIP/DEJA 2010. Cholecystectomy 10/21 Hx Anesthesia Reactions: No Infectious Disease History: Denies: Traveled Outside the [place] in Last 30 Days - Family History Known Family History: Positive: Hypertension - Social History Alcohol Use: Rare Substance Use Type: Reports: None Smoking Status (MU): Former Smoker Type: Cigarettes Amount Used/How Often: 2 PPD X 15 YEARS Have You Smoked in the Last Year: No Review of Systems Negative: Fever Positive: Chest Pain Positive: Shortness Of Breath. Negative: Cough Negative: Abdominal Pain All Other Systems Reviewed And Are Negative: Yes Physical Exam Triage Information Reviewed: Yes Vital Signs Reviewed: Yes Appearance: Positive: Well-Appearing Skin: Positive: Warm, Dry Head/Face: Positive: Normal Head/Face Inspection Eyes: Positive: Normal, Conjunctiva Clear ENT: Positive: Pharynx normal Respiratory/Lung Sounds: Positive: Clear to Auscultation, Breath Sounds Present Cardiovascular: Positive: Normal, RRR Abdomen Description: Positive: Nontender, Soft Bowel Sounds: Positive: Present Musculoskeletal: Positive: Normal Neurological: Positive: Normal Psychiatric: Positive: Normal Diagnostics - Laboratory Lab Results: Lab Results 01/21/19 01/21/19 Range/Units 10:08 10:08 WBC 9.7 (3.5-10.8) 10^3/uL RBC 5.27 H (3.70-4.87) 10^6 /uL Hgb 17.1 H (12.0-16.0) g/dL Hct 51 H (35-47) % MCV 98 H (80-97) fL MCH 32 H (27-31) pg MCHC 33 (31-36) g/dL RDW 17 H (10-15) % Plt Count 206 (150-450) 10^3/uL MPV 9.1 (7.4-10.4) fL Neut % (Auto) 85.9 % Lymph % (Auto) 8.2 % [place] % (Auto) 4.2 % Eos % (Auto) 1.1 % Baso % (Auto) 0.6 % Absolute Neuts (auto) 8.3 H (1.5-7.7) 10^3/ul Absolute Lymphs (auto) 0.8 L (1.0-4.8) 10^3/ul Absolute Monos (auto) 0.4 (0-0.8) 10^3/ul Absolute Eos (auto) 0.1 (0-0.6) 10^3/ul Absolute Basos (auto) 0.1 (0-0.2) 10^3/ul Absolute Nucleated RBC 0.0 10^3/ul Nucleated RBC % 0.2 INR (Anticoag Therapy) 1.14 H (0.82-1.09) Result Diagrams: 01/21/19 10:08 01/21/19 10:08 Lab Statement: Any lab studies that have been ordered have been reviewed, and results considered in the medical decision making process. - Radiology chest Radiology Interpretation Completed By: Radiologist Summary of Radiographic Findings: IMPRESSION: NO ACTIVE CARDIOPULMONARY DISEASE IS NOTED. - CT cta CT Interpretation Completed By: Radiologist Summary of CT Findings: IMPRESSION: No fracture of the left knee is noted. - EKG No standard instances Cardiac Rate: NL EKG Rhythm: Sinus Rhythm EKG Comparison: Other - q waves in v1-v4 new Summary of EKG Findings: sinus rhythm, new q waves in v1-v4 Re-Evaluation - Re-Evaluation First Eval Re-Evaluation Time: 14:34 Change: Improved Comment: feeling better Chest Pain Course/Dx - Course Course Of Treatment: 73-year-old female presents with chest pain today. States that yesterday had a cauterization done to check right heart pressures. She states that she felt okay yesterday but that last night developed chest pain last night. She states that it is sharp pain that radiates up into her neck and into her back. She states she is short of breath. She denies any cough. No fevers. No abdominal pain nausea vomiting. hx of sob but no hx of chest pain. She is not on blood thinners. has history of dm and scleroderma and pulmonary artery hypertension. fam hx of cardiac disease. was a smoker. on exam lungs CTA. heart RRR. abd soft nontender. ekg shows sinus rhythm. troponinx2 normal. cta no PE. discussed case with dr santos who says is likely pulmonary artery hypertension causing symptoms. should follow up with dr ortega and can be discharge. discussed results. patient understand and agrees with plan. - Chest Pain Differential Diagnosis/HQI/PQRI: Angina, Pulmonary Edema, Pulmonary Embolism - Diagnoses Provider Diagnoses: Chest pain, Pulmonary artery hypertension Discharge - Sign-Out/Discharge Documenting (check all that apply): Patient Departure Patient Received Moderate/Deep Sedation with Procedure: No - Discharge Plan Condition: Stable Disposition: HOME Patient Education Materials: Chest Pain (ED) Referrals: Ruslan Martinez DO [Primary Care Provider] - Additional Instructions: follow up with dr ortega within 5 days Take tramadol or tyenlol as needed for pain every 8 hours Return to ED if develop any new or worsening symptoms - Billing Disposition and Condition Condition: STABLE Disposition: Home
[2019-01-21 10:43] LABS: Albumin 4.5 g/dL (3.2-5.2); Albumin/Globulin Ratio 1.7 (1-3); BUN/Creatinine Ratio 30.6 (8-20); Calcium 10.2 mg/dL (8.6-10.3); EGFR African American 58.1 (>60); Globulin 2.6 g/dL (2-4); Potassium 4.4 mmol/L (3.5-5.0); Total Bilirubin 1.1 mg/dL (0.2-1.0); Total Protein 7.1 g/dL (6.4-8.9)
[2019-01-21 10:44] LABS: Troponin I 0.01 ng/mL (<0.04)
[2019-01-21] MEDS ORDERED: Iodixanol* (CONTRAST) 320 MG/ML 100 ML SDV IV ONE (11:23)
[2019-01-21] MEDS ORDERED: Morphine 4 MG/ML VIAL (1 ml) 4 MG/ML VIAL IV ONE (13:22)
[2019-01-21 15:14] VITALS: BP 122/87
== END 2019-01-21 15:10 | disposition home or self-care (01) ==
LOC: ED 09:51
DX: R07.9 Chest pain, unspecified (principal); I27.21 Secondary pulmonary arterial hypertension; Z88.0 Allergy status to penicillin; Z79.82 Long term (current) use of aspirin; Z79.899 Other long term (current) drug therapy; Z79.84 Long term (current) use of oral hypoglycemic drugs; E11.9 Type 2 diabetes mellitus without complications; I10 Essential (primary) hypertension; I73.9 Peripheral vascular disease, unspecified; Z87.891 Personal history of nicotine dependence; R91.8 Other nonspecific abnormal finding of lung field
CPT/HCPCS: 36415; 71045; 71275; 80053; 84484; 85025; 85379; 85610; 93005; 96374; 99283; A9270-GY; J2270; Q9967

== ENCOUNTER 2019-01-29 22:59 | Emergency (ER) | payer MEDICARE, BC ==
[2019-01-29 23:32] LABS: ABS Basophils 0.1 10^3/ul (0-0.2); ABS Eosinophils 0.2 10^3/ul (0-0.6); ABS Lymphocytes 1.4 10^3/ul (1.0-4.8); ABS Monocytes 0.5 10^3/ul (0-0.8); ABS Neutrophils 5.7 10^3/ul (1.5-7.7); Eosinophil % 2.2 %; Hematocrit 46 % (35-47); Hemoglobin 15.2 g/dL (12.0-16.0); Lymphocyte % 17.4 %; Mean Corpuscular HGB Conc 33 g/dL (31-36); Mean Corpuscular Hemoglobin 33 pg (27-31); Mean Corpuscular Volume 98 fL (80-97); Mean Platelet Volume 8.5 fL (7.4-10.4); Nucleated Red Blood Cells % 0.1; Platelet Count 216 10^3/uL (150-450); Red Blood Count 4.68 10^6 /uL (3.70-4.87); Red Cell Distribution Width 17 % (10-15); White Blood Count 7.9 10^3/uL (3.5-10.8)
--- NOTE | 2019-01-29 23:33 | ED ---
Abdominal Pain/Female - HPI Summary HPI Summary: A 73 y/o female accompanied by daughter in law presents to [facility] with a chief complaint of right sided abdominal pain since last night. She says that she took Tramadol at 08:00 and 16:00 today which alleviated some of her pain. Movement worsens her pain. She has had a constant sharp pain. At triage she rated her pain as a 10/10 in severity. She denies any N/V, fever, trouble with bowel movements or urinary symptoms but has not had much of an appetite. The patient wears O2. She notes that she has a Hx of scleroderma and pulmonary HTN. She says that 10 days ago she had an iron infusion, 9 days ago she had a right cardiac catheterization and 8 days ago she had extreme pain and was given morphine. Now she denies any CP. - History of Current Complaint Chief Complaint: EDAbdPain Stated Complaint: ABDOMINAL PAIN PER PT Time Seen by Provider: 01/29/19 23:22 Hx Obtained From: Patient, Family/Duplicating Machine Servicer Onset/Duration: Sudden Onset, Lasting Hours, Still Present Timing: Constant Severity Initially: Severe Severity Currently: Severe Pain Intensity: 10 Pain Scale Used: 0-10 Numeric Location: Other - right sided Radiates: No Character: Sharp Aggravating Factor(s): Movement Alleviating Factor(s): Other: - Tramadol Associated Signs and Symptoms: Negative: Fever, Chest Pain, Constipation, Urinary Symptoms, Nausea, Vomiting Allergies/Adverse Reactions: Allergies Allergy/AdvReac Type Severity Reaction Status Date / Time Penicillins Allergy RASH/REACTION Verified 01/29/19 23:03 A CHILD Home Medications: Home Medications Spironolactone TAB* [Aldactone TAB*] 50 mg PO DAILY 01/29/19 [History Confirmed 01/29/19] Tadalafil 40 mg PO QAM 01/29/19 [History Confirmed 01/29/19] Torsemide TAB* [Demadex*] 20 mg PO DAILY 01/29/19 [History Confirmed 01/29/19] Ubidecarenone/Vit E/Vit E Mix [Co-Enzyme Q10 100 mg Softgel] 1 tab PO DAILY [History Confirmed 01/29/19] PMH/Surg Hx/FS Hx/Imm Hx Endocrine/Hematology History: Reports: Hx Diabetes - TYPE II- ON ORAL MEDICATION , Hx Thyroid Disease - NODULES Cardiovascular History: Reports: Hx Hypertension - ON MEDICATION FOR, Hx Peripheral Vascular Disease - LEFT LOWER EXT VARICOSE VEIN, RIGHT LEG HAS VEIN ISSUE PER PT, Hx Rheumatic Fever - A CHILD Denies: Hx Pacemaker/ICD, Other Cardiovascular Problems/Disorders Respiratory History: Denies: Other Respiratory Problems/Disorders GI History: Reports: Other GI Disorders - DIARRHEA- SOMETIMES 1/2 HOUR AFTER EATING, Cholecystectomy 10/21 History: Reports: Hx Kidney Stones - HX OF, Other Problems/Disorders - Stress incontinence, frequent urination Denies: Hx Renal Disease Musculoskeletal History: Reports: Hx Arthritis - OSTEOARTHRITIS, UPPER BACK, LEFT HAND, Hx Bursitis - LEFT HIP, Hx Tendonitis - Right carpal tunnel syndrome , Other Musculoskeletal History - TORN ROTATOR CUFF-RIGHT, RIGHT KNEE MENISCUS TEAR Sensory History: Reports: Hx Contacts or Glasses - GLASSES Denies: Hx Hearing Aid Opthamlomology History: Reports: Hx Contacts or Glasses - GLASSES Neurological History: Reports: Hx Headaches - HISTORY OF MUSCULAR CONTRACTION HEADACHES, Other Neuro Impairments/Disorders - VERTIGO HX Psychiatric History: Denies: Hx Panic Disorder - Surgical History Surgery Procedure, Year, and Place: TUBAL LIGATION 1976. [facility]. KIDNEY STONE 2012. LEFT BREAST SURGERY REMOVED CLUSTER PUT IN BREAST CLIP/DEJA 2010. Cholecystectomy 10/21 Hx Anesthesia Reactions: No Infectious Disease History: No Infectious Disease History: Denies: Traveled Outside the [place] in Last 30 Days - Family History Known Family History: Positive: Hypertension - Social History Alcohol Use: Rare Substance Use Type: Reports: None Smoking Status (MU): Former Smoker Type: Cigarettes Amount Used/How Often: 2 PPD X 15 YEARS Have You Smoked in the Last Year: No Review of Systems Negative: Fever Negative: Chest Pain Positive: Abdominal Pain, Other - negative: difficulty with BMs. Negative: Vomiting, Nausea Negative: dysuria, hematuria All Other Systems Reviewed And Are Negative: Yes Physical Exam - Summary Physical Exam Summary: Appearance: Well-appearing, Well-nourished, lying in bed comfortably Skin: Warm, dry, no obvious rash Eyes: sclera anicteric, no conjunctival pallor ENT: mucous membranes moist, pharynx appears normal Neck: Supple, nontender Respiratory: Clear to auscultation, no signs of respiratory distress Cardiovascular: Normal S1, S2. No murmurs. Normal distal pulses in tibial and radial bilaterally. Abdomen: Soft, right sided abdominal tenderness without peritoneal signs, normal active bowel sounds present Musculoskeletal: Normal, Strength/ROM Intact Neurological: A&Ox3, awake and alert, mentation is normal, speech is fluent and appropriate Psychiatric: affect is normal, does not appear anxious or depressed Triage Information Reviewed: Yes Vital Signs On Initial Exam: Initial Vitals Temp Pulse Resp BP Pulse Ox 97.6 F 103 18 117/81 98 01/29/19 23:00 01/29/19 23:00 01/29/19 23:00 01/29/19 23:00 01/29/19 23:00 Vital Signs Reviewed: Yes Diagnostics - Vital Signs Vital Signs Temp Pulse Resp BP Pulse Ox 01/29/19 23:00 97.6 F 103 18 117/81 98 - Laboratory Result Diagrams: 01/29/19 23:25 01/29/19 23:25 Lab Statement: Any lab studies that have been ordered have been reviewed, and results considered in the medical decision making process. - CT abdomen/pelvis CT Interpretation Completed By: Radiologist Summary of CT Findings: No evidence of acute intra-abdominal pathology. ED physician has reviewed this imaging report. - EKG 23:39 Cardiac Rate: Other Rate - Atrial flutter at 79 bpm EKG Rhythm: Atrial Flutter Summary of EKG Findings: EKG at 23:39 showed atrial flutter at 79 bpm with predominant 4:1 AV block. Abdominal Pain Fem Course/Dx - Course Course Of Treatment: A 73 y/o female accompanied by daughter in law presents to [facility] with a chief complaint of right sided abdominal pain since last night. The physical exam revealed right sided abdominal tenderness without peritoneal signs. EKG at 23:39 showed atrial flutter at 79 bpm with predominant 4:1 AV block. Blood work, chemistries and urines obtained and are WNL. In the ED course the patient was given Iodixanol IV. Abdomen/pelvis CT impression: No evidence of acute intra-abdominal pathology. The patient will be discharged home with a prescription for Ultram and follow up with her PCP. The patient is agreeable with this plan. - Diagnoses Provider Diagnoses: Abdominal pain, Atrial flutter Discharge - Sign-Out/Discharge Documenting (check all that apply): Patient Departure - DC Patient Received Moderate/Deep Sedation with Procedure: No - Discharge Plan Condition: Good Disposition: HOME Prescriptions: traMADol TAB* [Ultram*] 100 mg PO Q6HR PRN #20 tab MDD 8 PRN Reason: Pain - Severe Patient Education Materials: Atrial Flutter (ED), Acute Abdominal Pain (ED) Referrals: Ruslan Martinez DO [Primary Care Provider] - Additional Instructions: We did not find any problem identified on the CT scan or your lab work that would account for your pain. We did find that you have developed a heart rhythm problem called atrial flutter. This is not related to your recent complaints, but is often seen in people with your type of lung disease. It does not require any specific treatment right now but you may be a candidate for anticoagulation to reduce the associated stroke risk we see in this heart problem. But given the complexity of your medical conditions I would be uncomfortable committing you to that now and would prefer that you discuss this with your benefits analyst. Please call their office on Thursday for followup. In the interim I am ok with you stopping the new medication that was prescribed in case that is causing these pains. - Billing Disposition and Condition Condition: GOOD Disposition: Home - Attestation Statements Document Initiated by Eliezer: Yes Documenting Scribe: Jaguar Soto Provider For Whom Eliezer is Documenting (Include Credential): Varun Ludwig MD Scribe Attestation: I, Jaguar Soto, scribed for Varun Ludwig MD on 01/30/19 at 0538. Scribe Documentation Reviewed: Yes Provider Attestation: The documentation as recorded by the Jaguar wood accurately reflects the service I personally performed and the decisions made by me, Varun Ludwig MD Status of Scribe Document: Viewed
[2019-01-29 23:37] LABS: INR 1.23 (0.82-1.09)
[2019-01-29 23:49] LABS: Albumin 4.3 g/dL (3.2-5.2); Albumin/Globulin Ratio 1.4 (1-3); BUN/Creatinine Ratio 33.9 (8-20); Calcium 10.2 mg/dL (8.6-10.3); EGFR African American 57.5 (>60); EGFR Non-African American 47.6 (>60); Potassium 3.9 mmol/L (3.5-5.0); Total Bilirubin 0.8 mg/dL (0.2-1.0); Total Protein 7.3 g/dL (6.4-8.9)
[2019-01-29 23:51] LABS: Troponin I 0.03 ng/mL (<0.04)
[2019-01-30 00:24] LABS: C Reactive Protein 104.26 mg/L (<8.01)
[2019-01-30] MEDS ORDERED: Iodixanol* (CONTRAST) 320 MG/ML 100 ML SDV IV ONE (02:49)
[2019-01-30 03:13] LABS: Urine Appearance Clear; Urine Bacteria Absent (Absent); Urine Bilirubin Negative (Negative); Urine Blood Negative (Negative); Urine Color Yellow; Urine Glucose Negative (Negative); Urine Ketones Negative (Negative); Urine Nitrite Negative (Negative); Urine Protein Negative (Negative); Urine Red Blood Cell Absent (Absent); Urine Specific Gravity 1.017 (1.010-1.030); Urine Squamous Epithelial Cell Present (Absent); Urine Urobilinogen Negative (Negative); Urine White Blood Cell 1+(6-10/hpf) (Absent)
[2019-01-30 05:32] VITALS: BP 116/82
== END 2019-01-30 05:32 | disposition home or self-care (01) ==
LOC: ED 22:59
DX: R10.9 Unspecified abdominal pain (principal); I48.92 Unspecified atrial flutter; E11.9 Type 2 diabetes mellitus without complications; Z88.0 Allergy status to penicillin; Z79.899 Other long term (current) drug therapy; Z79.84 Long term (current) use of oral hypoglycemic drugs; I10 Essential (primary) hypertension; I73.9 Peripheral vascular disease, unspecified; Z87.442 Personal history of urinary calculi; Z87.891 Personal history of nicotine dependence; Z87.39 Personal history of other diseases of the musculoskeletal system and connective tissue; Z95.5 Presence of coronary angioplasty implant and graft
CPT/HCPCS: 36415; 74177; 80053; 81003; 81015; 83605; 83690; 84484; 85025; 85610; 86140; 87086; 93005; 99283; Q9967

== ENCOUNTER 2020-09-27 01:35 | Inpatient (IN) ==
[2020-09-27 04:01] LABS: ABS Basophils 0.1 10^3/ul (0-0.2); ABS Eosinophils 0.1 10^3/ul (0-0.6); ABS Lymphocytes 0.3 10^3/ul (1.0-4.8); ABS Monocytes 0.3 10^3/ul (0-0.8); ABS Neutrophils 4.1 10^3/ul (1.5-7.7); Eosinophil % 2.4 %; Hematocrit 36 % (35-47); Hemoglobin 11.8 g/dL (12.0-16.0); Lymphocyte % 6.3 %; Mean Corpuscular HGB Conc 33 g/dL (31-36); Mean Corpuscular Hemoglobin 32 pg (27-31); Mean Corpuscular Volume 98 fL (80-97); Mean Platelet Volume 7.1 fL (7.4-10.4); Nucleated Red Blood Cells % 0.1; Platelet Count 317 10^3/uL (150-450); Red Cell Distribution Width 20 % (10-15); White Blood Count 4.9 10^3/uL (3.5-10.8)
[2020-09-27 04:05] LABS: INR 1.7 (0.82-1.09)
[2020-09-27 04:17] LABS: ALT 7 U/L (7-52); AST 14 U/L (13-39); Albumin 4.2 g/dL (3.2-5.2); Albumin/Globulin Ratio 1.7 (1-3); Alkaline Phosphatase 82 U/L (34-104); Anion Gap 14 mmol/L (2-11); BUN/Creatinine Ratio 34.7 (8-20); Blood Urea Nitrogen 84 mg/dL (6-24); CO2 Carbon Dioxide 22 mmol/L (22-32); Calcium 9.5 mg/dL (8.6-10.3); Chloride 98 mmol/L (101-111); EGFR African American 23.5 (>60); EGFR Non-African American 19.4 (>60); Globulin 2.5 g/dL (2-4); Glucose 94 mg/dL (70-100); Potassium 3.7 mmol/L (3.5-5.0); Sodium 134 mmol/L (135-145); Total Protein 6.7 g/dL (6.4-8.9)
[2020-09-27 04:35] LABS: Troponin I 0.03 ng/mL (<0.03)
[2020-09-27] MEDS ORDERED: Furosemide 100 mg/10 ml IV VIAL IV ONE (05:27)
[2020-09-27] MEDS ORDERED: Enoxaparin 40 MG/0.4 ML SYR SUBCUT SCH (06:00)
[2020-09-27] MEDS ORDERED: Dextrose 50% Syringe 50 ml 25 GM/50 ML SYRINGE IV PUSH PRN (06:46)
[2020-09-27 08:21] LABS: Magnesium 2.4 mg/dL (1.9-2.7); Phosphorus 5.5 mg/dL (2.5-5.0)
[2020-09-27] MEDS ORDERED: Tadalafil 20 mg TAB (NF) PO SCH (09:00)
[2020-09-27] MEDS: TREPROSTINIL DIOLAMINE 2.5 MG PO SCH ×3 (10:05→23:06)
[2020-09-27] MEDS: TREPROSTINIL DIOLAMINE 1 MG PO SCH ×3 (10:06→23:06)
[2020-09-27] MEDS ORDERED: Ondansetron 4 mg VIAL 2 MG/ML 2 ml VIAL IV PRN (15:19)
[2020-09-27] MEDS: PTO:Tadalafil 20 mg TAB (NF) PO SCH (15:59)
[2020-09-27] MEDS: AMBRISENTAN 10 MG PO SCH (16:00)
[2020-09-28 06:16] LABS: ABS Eosinophils 0.2 10^3/ul (0-0.6); ABS Lymphocytes 0.3 10^3/ul (1.0-4.8); ABS Monocytes 0.3 10^3/ul (0-0.8); ABS Neutrophils 3.6 10^3/ul (1.5-7.7); Eosinophil % 3.5 %; Hematocrit 36 % (35-47); Hemoglobin 11.6 g/dL (12.0-16.0); Lymphocyte % 6.9 %; Mean Corpuscular HGB Conc 33 g/dL (31-36); Mean Corpuscular Hemoglobin 32 pg (27-31); Mean Corpuscular Volume 97 fL (80-97); Mean Platelet Volume 6.7 fL (7.4-10.4); Nucleated Red Blood Cells % 0.2; Platelet Count 300 10^3/uL (150-450); Red Cell Distribution Width 20 % (10-15); White Blood Count 4.3 10^3/uL (3.5-10.8)
[2020-09-28 06:31] LABS: BUN/Creatinine Ratio 36.3 (8-20); Calcium 9.2 mg/dL (8.6-10.3); EGFR Non-African American 22.3 (>60); Magnesium 2.3 mg/dL (1.9-2.7); Phosphorus 4.4 mg/dL (2.5-5.0); Potassium 3.2 mmol/L (3.5-5.0)
[2020-09-28] MEDS: TREPROSTINIL DIOLAMINE 2.5 MG PO SCH ×3 (06:45→23:00)
[2020-09-28] MEDS: TREPROSTINIL DIOLAMINE 1 MG PO SCH ×3 (06:45→22:59)
[2020-09-28] MEDS: AMBRISENTAN 10 MG PO SCH (08:39)
[2020-09-28] MEDS: PTO:Tadalafil 20 mg TAB (NF) PO SCH (08:41)
[2020-09-28] MEDS: Potassium Chlor 20 meq TAB.ER PO SCH ×2 (10:49→15:01)
[2020-09-28] MEDS ORDERED: Furosemide 40 mg/4 ml IV VIAL IV SLOW PU ONE (14:12)
[2020-09-28] MEDS ORDERED: Potassium Chlor 20 meq TAB.ER PO ONE (15:00)
[2020-09-29 06:00] LABS: ABS Basophils 0.1 10^3/ul (0-0.2); ABS Eosinophils 0.1 10^3/ul (0-0.6); ABS Lymphocytes 0.4 10^3/ul (1.0-4.8); ABS Monocytes 0.3 10^3/ul (0-0.8); ABS Neutrophils 2.6 10^3/ul (1.5-7.7); Eosinophil % 4.3 %; Hematocrit 31 % (35-47); Hemoglobin 10.3 g/dL (12.0-16.0); Lymphocyte % 10.6 %; Mean Corpuscular HGB Conc 33 g/dL (31-36); Mean Corpuscular Hemoglobin 32 pg (27-31); Mean Corpuscular Volume 97 fL (80-97); Mean Platelet Volume 6.9 fL (7.4-10.4); Platelet Count 253 10^3/uL (150-450); Red Blood Count 3.22 10^6 /uL (3.70-4.87); Red Cell Distribution Width 20 % (10-15); White Blood Count 3.5 10^3/uL (3.5-10.8)
[2020-09-29 06:11] LABS: BUN/Creatinine Ratio 36.2 (8-20); EGFR African American 26.5 (>60); EGFR Non-African American 21.9 (>60); Potassium 4.6 mmol/L (3.5-5.0)
[2020-09-29] MEDS: TREPROSTINIL DIOLAMINE 1 MG PO SCH ×3 (07:32→23:00)
[2020-09-29] MEDS: TREPROSTINIL DIOLAMINE 2.5 MG PO SCH ×3 (07:32→23:10)
[2020-09-29] MEDS: AMBRISENTAN 10 MG PO SCH (09:18)
[2020-09-29] MEDS: PTO:Tadalafil 20 mg TAB (NF) PO SCH (09:18)
[2020-09-29] MEDS ORDERED: Furosemide 40 mg/4 ml IV VIAL IV SLOW PU ONE (13:11)
[2020-09-29] MEDS: Furosemide 100 mg/10 ml IV 100 MG in NS 0.9% 100 ml BAG 90 ML IV SCH ×2 (15:12→21:55)
[2020-09-30] MEDS: Furosemide 100 mg/10 ml IV 100 MG in NS 0.9% 100 ml BAG 90 ML IV SCH ×3 (05:47→21:31)
[2020-09-30 06:24] LABS: ABS Eosinophils 0.1 10^3/ul (0-0.6); ABS Lymphocytes 0.3 10^3/ul (1.0-4.8); ABS Monocytes 0.2 10^3/ul (0-0.8); ABS Neutrophils 2.9 10^3/ul (1.5-7.7); Eosinophil % 3.5 %; Hematocrit 33 % (35-47); Hemoglobin 10.6 g/dL (12.0-16.0); Lymphocyte % 8.3 %; Mean Corpuscular HGB Conc 33 g/dL (31-36); Mean Corpuscular Hemoglobin 31 pg (27-31); Mean Corpuscular Volume 97 fL (80-97); Mean Platelet Volume 6.8 fL (7.4-10.4); Platelet Count 260 10^3/uL (150-450); Red Blood Count 3.39 10^6 /uL (3.70-4.87); Red Cell Distribution Width 19 % (10-15); White Blood Count 3.6 10^3/uL (3.5-10.8)
[2020-09-30 06:40] LABS: BUN/Creatinine Ratio 35.4 (8-20); Calcium 9.2 mg/dL (8.6-10.3); EGFR African American 23.4 (>60); EGFR Non-African American 19.3 (>60); Magnesium 2.4 mg/dL (1.9-2.7); Potassium 4.2 mmol/L (3.5-5.0)
[2020-09-30] MEDS: TREPROSTINIL DIOLAMINE 1 MG PO SCH ×3 (07:38→23:02)
[2020-09-30] MEDS: TREPROSTINIL DIOLAMINE 2.5 MG PO SCH ×3 (07:38→23:02)
[2020-09-30] MEDS: PTO:Tadalafil 20 mg TAB (NF) PO SCH (08:48)
[2020-10-01] MEDS: Furosemide 100 mg/10 ml IV 100 MG in NS 0.9% 100 ml BAG 90 ML IV SCH ×3 (03:39→18:29)
[2020-10-01 06:55] LABS: BUN/Creatinine Ratio 34.5 (8-20); Calcium 9.3 mg/dL (8.6-10.3); EGFR African American 22.8 (>60); EGFR Non-African American 18.8 (>60); Potassium 4.1 mmol/L (3.5-5.0)
[2020-10-01] MEDS: TREPROSTINIL DIOLAMINE 1 MG PO SCH ×3 (07:50→22:40)
[2020-10-01] MEDS: TREPROSTINIL DIOLAMINE 2.5 MG PO SCH ×3 (07:50→22:40)
[2020-10-01] MEDS: PTO:Tadalafil 20 mg TAB (NF) PO SCH (10:48)
[2020-10-01] MEDS: Iron Sucrose 200 MG in NS 0.9% 100 ml BAG 100 ML IVPB SCH (17:03)
[2020-10-02] MEDS: Furosemide 100 mg/10 ml IV 100 MG in NS 0.9% 100 ml BAG 90 ML IV SCH ×4 (01:04→20:41)
[2020-10-02] MEDS: TREPROSTINIL DIOLAMINE 1 MG PO SCH ×3 (06:19→23:57)
[2020-10-02] MEDS: TREPROSTINIL DIOLAMINE 2.5 MG PO SCH ×3 (06:19→23:58)
[2020-10-02 06:27] LABS: ABS Eosinophils 0.1 10^3/ul (0-0.6); ABS Lymphocytes 0.3 10^3/ul (1.0-4.8); ABS Monocytes 0.3 10^3/ul (0-0.8); ABS Neutrophils 2.9 10^3/ul (1.5-7.7); Eosinophil % 3.7 %; Hematocrit 34 % (35-47); Hemoglobin 10.7 g/dL (12.0-16.0); Lymphocyte % 8.4 %; Mean Corpuscular HGB Conc 32 g/dL (31-36); Mean Corpuscular Hemoglobin 31 pg (27-31); Mean Corpuscular Volume 97 fL (80-97); Mean Platelet Volume 7.1 fL (7.4-10.4); Platelet Count 267 10^3/uL (150-450); Red Blood Count 3.45 10^6 /uL (3.70-4.87); Red Cell Distribution Width 19 % (10-15); White Blood Count 3.6 10^3/uL (3.5-10.8)
[2020-10-02 06:46] LABS: Calcium 9.3 mg/dL (8.6-10.3); EGFR African American 23.4 (>60); EGFR Non-African American 19.3 (>60); Potassium 3.2 mmol/L (3.5-5.0)
[2020-10-02] MEDS ORDERED: Potassium Chlor 20 meq TAB.ER PO ONE (08:04)
[2020-10-02] MEDS: PTO:Tadalafil 20 mg TAB (NF) PO SCH (09:08)
[2020-10-02] MEDS: Iron Sucrose 200 MG in NS 0.9% 100 ml BAG 100 ML IVPB SCH (09:37)
[2020-10-02 17:02] LABS: Urine Appearance Cloudy; Urine Bilirubin Negative (Negative); Urine Blood 1+ (Negative); Urine Color Yellow; Urine Glucose Negative (Negative); Urine Ketones Negative (Negative); Urine Nitrite Negative (Negative); Urine Protein Negative (Negative); Urine Specific Gravity 1.008 (1.002-1.030); Urine Urobilinogen Negative (Negative)
[2020-10-02 17:11] LABS: Urine Bacteria 1+ (Absent); Urine Red Blood Cell Trace(0-2/hpf) (Absent); Urine Squamous Epithelial Cell Present (Absent); Urine White Blood Cell 2+(11-20/hpf) (Absent)
[2020-10-03] MEDS: Furosemide 100 mg/10 ml IV 100 MG in NS 0.9% 100 ml BAG 90 ML IV SCH ×3 (04:35→18:34)
[2020-10-03 06:27] LABS: ABS Eosinophils 0.1 10^3/ul (0-0.6); ABS Lymphocytes 0.3 10^3/ul (1.0-4.8); ABS Monocytes 0.2 10^3/ul (0-0.8); ABS Neutrophils 3.1 10^3/ul (1.5-7.7); Eosinophil % 3.3 %; Hematocrit 33 % (35-47); Hemoglobin 10.6 g/dL (12.0-16.0); Lymphocyte % 8.7 %; Mean Corpuscular HGB Conc 33 g/dL (31-36); Mean Corpuscular Hemoglobin 31 pg (27-31); Mean Corpuscular Volume 96 fL (80-97); Mean Platelet Volume 7.2 fL (7.4-10.4); Nucleated Red Blood Cells % 0.1; Platelet Count 275 10^3/uL (150-450); Red Blood Count 3.41 10^6 /uL (3.70-4.87); Red Cell Distribution Width 20 % (10-15); White Blood Count 3.8 10^3/uL (3.5-10.8)
[2020-10-03 06:47] LABS: Calcium 9.3 mg/dL (8.6-10.3); EGFR African American 27.7 (>60); EGFR Non-African American 22.9 (>60); Potassium 3.4 mmol/L (3.5-5.0)
[2020-10-03] MEDS ORDERED: Potassium Chlor 20 meq TAB.ER PO ONE (07:12)
[2020-10-03] MEDS: TREPROSTINIL DIOLAMINE 2.5 MG PO SCH ×3 (07:29→22:42)
[2020-10-03] MEDS: TREPROSTINIL DIOLAMINE 1 MG PO SCH ×3 (07:29→22:42)
[2020-10-03] MEDS: PTO:Tadalafil 20 mg TAB (NF) PO SCH (08:50)
[2020-10-03] MEDS: Iron Sucrose 200 MG in NS 0.9% 100 ml BAG 100 ML IVPB SCH (08:52)
[2020-10-03 16:42] LABS: Ferritin 242.9 ng/mL (11-307)
[2020-10-03 16:51] LABS: Magnesium 2.7 mg/dL (1.9-2.7)
[2020-10-03 18:33] LABS: Folate 6.58 ng/mL (>3.99)
[2020-10-04] MEDS: Furosemide 100 mg/10 ml IV 100 MG in NS 0.9% 100 ml BAG 90 ML IV SCH ×3 (00:39→13:50)
[2020-10-04] MEDS: TREPROSTINIL DIOLAMINE 1 MG PO SCH ×3 (06:14→23:11)
[2020-10-04] MEDS: TREPROSTINIL DIOLAMINE 2.5 MG PO SCH ×3 (06:14→23:11)
[2020-10-04 06:39] LABS: ABS Basophils 0.1 10^3/ul (0-0.2); ABS Eosinophils 0.1 10^3/ul (0-0.6); ABS Lymphocytes 0.3 10^3/ul (1.0-4.8); ABS Monocytes 0.3 10^3/ul (0-0.8); Hematocrit 33 % (35-47); Hemoglobin 10.8 g/dL (12.0-16.0); Mean Corpuscular HGB Conc 33 g/dL (31-36); Mean Corpuscular Hemoglobin 32 pg (27-31); Mean Corpuscular Volume 97 fL (80-97); Mean Platelet Volume 7.2 fL (7.4-10.4); Nucleated Red Blood Cells % 0.1; Platelet Count 266 10^3/uL (150-450); Red Blood Count 3.41 10^6 /uL (3.70-4.87); Red Cell Distribution Width 19 % (10-15); White Blood Count 3.9 10^3/uL (3.5-10.8)
[2020-10-04 06:50] LABS: Calcium 9.3 mg/dL (8.6-10.3); EGFR African American 24.2 (>60)
[2020-10-04] MEDS: PTO:Tadalafil 20 mg TAB (NF) PO SCH (08:48)
[2020-10-04] MEDS ORDERED: Potassium Chlor 20 meq TAB.ER PO ONE (09:56)
[2020-10-04] MEDS ORDERED: KCL 20 MEQ/100 ML IVPREMIX 20 MEQ/100 ML BAG IV ONE (09:56)
[2020-10-04] MEDS: Iron Sucrose 200 MG in NS 0.9% 100 ml BAG 100 ML IVPB SCH (13:50)
[2020-10-05 05:47] LABS: ABS Eosinophils 0.2 10^3/ul (0-0.6); ABS Lymphocytes 0.4 10^3/ul (1.0-4.8); ABS Monocytes 0.4 10^3/ul (0-0.8); ABS Neutrophils 3.3 10^3/ul (1.5-7.7); Eosinophil % 4.4 %; Hematocrit 33 % (35-47); Hemoglobin 10.3 g/dL (12.0-16.0); Lymphocyte % 9.9 %; Mean Corpuscular HGB Conc 32 g/dL (31-36); Mean Corpuscular Hemoglobin 31 pg (27-31); Mean Corpuscular Volume 98 fL (80-97); Platelet Count 239 10^3/uL (150-450); Red Blood Count 3.31 10^6 /uL (3.70-4.87); Red Cell Distribution Width 19 % (10-15); White Blood Count 4.3 10^3/uL (3.5-10.8)
[2020-10-05] MEDS: TREPROSTINIL DIOLAMINE 1 MG PO SCH ×3 (06:01→22:25)
[2020-10-05] MEDS: TREPROSTINIL DIOLAMINE 2.5 MG PO SCH ×3 (06:01→22:24)
[2020-10-05 06:02] LABS: BUN/Creatinine Ratio 35.9 (8-20); Calcium 8.9 mg/dL (8.6-10.3); EGFR African American 24.1 (>60); EGFR Non-African American 19.9 (>60); Potassium 3.6 mmol/L (3.5-5.0)
[2020-10-05] MEDS ORDERED: KCL 20 MEQ/100 ML IVPREMIX 20 MEQ/100 ML BAG IV ONE (09:11)
[2020-10-05] MEDS: PTO:Tadalafil 20 mg TAB (NF) PO SCH (09:33)
[2020-10-05] MEDS: Iron Sucrose 200 MG in NS 0.9% 100 ml BAG 100 ML IVPB SCH (09:33)
[2020-10-05 09:35] LABS: Magnesium 2.6 mg/dL (1.9-2.7)
[2020-10-05 09:35] LABS: INR 1.25 (0.82-1.09)
[2020-10-06 05:03] LABS: ABS Basophils 0.1 10^3/ul (0-0.2); ABS Eosinophils 0.2 10^3/ul (0-0.6); ABS Lymphocytes 0.5 10^3/ul (1.0-4.8); ABS Monocytes 0.4 10^3/ul (0-0.8); Eosinophil % 4.8 %; Hematocrit 33 % (35-47); Hemoglobin 10.8 g/dL (12.0-16.0); Lymphocyte % 12.4 %; Mean Corpuscular HGB Conc 33 g/dL (31-36); Mean Corpuscular Hemoglobin 32 pg (27-31); Mean Corpuscular Volume 97 fL (80-97); Mean Platelet Volume 7.2 fL (7.4-10.4); Nucleated Red Blood Cells % 0.1; Platelet Count 244 10^3/uL (150-450); Red Blood Count 3.42 10^6 /uL (3.70-4.87); Red Cell Distribution Width 19 % (10-15); White Blood Count 4.1 10^3/uL (3.5-10.8)
[2020-10-06 05:22] LABS: Albumin 3.7 g/dL (3.2-5.2); Albumin/Globulin Ratio 1.9 (1-3); BUN/Creatinine Ratio 39.4 (8-20); Calcium 8.6 mg/dL (8.6-10.3); EGFR African American 26.8 (>60); EGFR Non-African American 22.2 (>60); Globulin 1.9 g/dL (2-4); Potassium 3.8 mmol/L (3.5-5.0); Total Bilirubin 0.5 mg/dL (0.2-1.0); Total Protein 5.6 g/dL (6.4-8.9)
[2020-10-06] MEDS: TREPROSTINIL DIOLAMINE 1 MG PO SCH ×3 (06:11→22:59)
[2020-10-06] MEDS: TREPROSTINIL DIOLAMINE 2.5 MG PO SCH ×3 (06:11→22:59)
[2020-10-06] MEDS: PTO:Tadalafil 20 mg TAB (NF) PO SCH (10:40)
[2020-10-07 05:21] LABS: Calcium 8.6 mg/dL (8.6-10.3); EGFR African American 32.9 (>60); EGFR Non-African American 27.2 (>60); Potassium 3.7 mmol/L (3.5-5.0)
[2020-10-07] MEDS: TREPROSTINIL DIOLAMINE 1 MG PO SCH ×2 (07:04→15:57)
[2020-10-07] MEDS: TREPROSTINIL DIOLAMINE 2.5 MG PO SCH ×2 (07:05→15:57)
[2020-10-07] MEDS: PTO:Tadalafil 20 mg TAB (NF) PO SCH (10:15)
[2020-10-07 15:29] VITALS: BP 108/58
== END 2020-10-07 16:46 | disposition home or self-care (01) | DRG 291 ==
LOC: ED 01:35 → ICU 05:19 → MEDTELE 21:54
PROVIDERS: ADMIT Internal Medicine Critical Care Medicine; ATTEND Internal Medicine

== ENCOUNTER 2020-12-01 22:09 | Inpatient (IN) ==
[2020-12-02 00:49] LABS: ABS Lymphocytes 0.3 10^3/ul (1.0-4.8); ABS Monocytes 0.3 10^3/ul (0-0.8); ABS Neutrophils 5.7 10^3/ul (1.5-7.7); Eosinophil % 0.1 %; Hematocrit 33 % (35-47); Hemoglobin 10.8 g/dL (12.0-16.0); Lymphocyte % 4.7 %; Mean Corpuscular HGB Conc 33 g/dL (31-36); Mean Corpuscular Hemoglobin 31 pg (27-31); Mean Corpuscular Volume 96 fL (80-97); Mean Platelet Volume 6.9 fL (7.4-10.4); Nucleated Red Blood Cells % 0.1; Platelet Count 213 10^3/uL (150-450); Red Blood Count 3.46 10^6 /uL (3.70-4.87); Red Cell Distribution Width 18 % (10-15); White Blood Count 6.3 10^3/uL (3.5-10.8)
[2020-12-02 01:06] LABS: ALT 13 U/L (7-52); AST 29 U/L (13-39); Albumin 4.2 g/dL (3.2-5.2); Albumin/Globulin Ratio 1.9 (1-3); Alkaline Phosphatase 72 U/L (35-149); Anion Gap 14 mmol/L (2-11); Blood Urea Nitrogen 82 mg/dL (6-24); C Reactive Protein 13.53 mg/L (<8.01); CO2 Carbon Dioxide 28 mmol/L (22-32); Calcium 9.7 mg/dL (8.6-10.3); Chloride 87 mmol/L (101-111); EGFR African American 30.2 (>60); EGFR Non-African American 24.9 (>60); Globulin 2.2 g/dL (2-4); Glucose 148 mg/dL (70-100); Magnesium 2.5 mg/dL (1.9-2.7); Potassium 2.8 mmol/L (3.5-5.0); Sodium 129 mmol/L (135-145); Total Protein 6.4 g/dL (6.4-8.9)
[2020-12-02 01:10] LABS: Troponin I 0.38 ng/mL (<0.03)
[2020-12-02] MEDS ORDERED: Potassium Chlor 20 meq TAB.ER PO ONE ×2 (01:19→19:00)
[2020-12-02 01:20] LABS: TSH Ultra Thyroid Stim Horm 5.79 mcIU/mL (0.34-5.60)
[2020-12-02] MEDS ORDERED: Ondansetron ODT 4 mg TAB 4 MG TAB PO PRN (02:39)
[2020-12-02 04:29] LABS: Troponin I 0.95 ng/mL (<0.03)
[2020-12-02 07:36] LABS: Troponin I 1.14 ng/mL (<0.03)
[2020-12-02] MEDS ORDERED: TREPROSTINIL SODIUM CONT SUBCU SCH (09:00)
[2020-12-02] MEDS ORDERED: Tadalafil 20 mg TAB (NF) PO SCH (09:00)
[2020-12-02 11:23] LABS: Troponin I 1.17 ng/mL (<0.03)
[2020-12-02] MEDS ORDERED: Tadalafil 20 mg TAB (NF) PO ONE (14:00)
[2020-12-02 17:25] LABS: Anion Gap 12 mmol/L (2-11); Blood Urea Nitrogen 83 mg/dL (6-24); CO2 Carbon Dioxide 27 mmol/L (22-32); Calcium 9.4 mg/dL (8.6-10.3); Chloride 88 mmol/L (101-111); EGFR African American 32.3 (>60); EGFR Non-African American 26.7 (>60); Glucose 131 mg/dL (70-100); Potassium 3.5 mmol/L (3.5-5.0); Sodium 127 mmol/L (135-145)
[2020-12-02] MEDS: [UNRECOGNIZED DRUG - REMARK] SUBCUT SCH ×2 (17:27→23:55)
[2020-12-02 23:42] LABS: Urine Appearance Cloudy; Urine Bilirubin Negative (Negative); Urine Blood 2+ (Negative); Urine Color Yellow; Urine Glucose Negative (Negative); Urine Ketones Negative (Negative); Urine Nitrite Negative (Negative); Urine Protein Negative (Negative); Urine Specific Gravity 1.009 (1.002-1.030); Urine Urobilinogen Negative (Negative)
[2020-12-02 23:46] LABS: Urine Bacteria 1+ (Absent); Urine Red Blood Cell Trace(0-2/hpf) (Absent); Urine Squamous Epithelial Cell Present (Absent); Urine White Blood Cell Trace(0-5/hpf) (Absent)
[2020-12-03] MEDS: Tadalafil 20 mg TAB (NF) PO SCH (08:17)
[2020-12-03] MEDS: [UNRECOGNIZED DRUG - REMARK] SUBCUT SCH ×2 (08:18→15:58)
[2020-12-03] MEDS: TREPROSTINIL SODIUM SUBCUT SCH (09:49)
[2020-12-03 10:26] LABS: ABS Eosinophils 0.2 10^3/ul (0-0.6); ABS Lymphocytes 0.3 10^3/ul (1.0-4.8); ABS Monocytes 0.2 10^3/ul (0-0.8); ABS Neutrophils 4.2 10^3/ul (1.5-7.7); Eosinophil % 4.2 %; Hematocrit 32 % (35-47); Hemoglobin 10.3 g/dL (12.0-16.0); Lymphocyte % 6.9 %; Mean Corpuscular HGB Conc 32 g/dL (31-36); Mean Corpuscular Hemoglobin 31 pg (27-31); Mean Corpuscular Volume 96 fL (80-97); Platelet Count 205 10^3/uL (150-450); Red Blood Count 3.33 10^6 /uL (3.70-4.87); Red Cell Distribution Width 18 % (10-15)
[2020-12-03 10:42] LABS: Calcium 9.3 mg/dL (8.6-10.3); EGFR African American 32.9 (>60); EGFR Non-African American 27.2 (>60); Potassium 3.3 mmol/L (3.5-5.0)
[2020-12-03] MEDS ORDERED: Perflutren Lipid Microsphere 3 ML VIAL ONE (10:52)
[2020-12-03 11:57] LABS: Magnesium 2.3 mg/dL (1.9-2.7)
[2020-12-03] MEDS ORDERED: Potassium Chlor 20 meq TAB.ER PO ONE (14:36)
[2020-12-04] MEDS: [UNRECOGNIZED DRUG - REMARK] SUBCUT SCH ×3 (00:14→14:32)
[2020-12-04 05:51] LABS: Calcium 8.9 mg/dL (8.6-10.3); EGFR African American 33.5 (>60); EGFR Non-African American 27.7 (>60); Potassium 3.9 mmol/L (3.5-5.0)
[2020-12-04] MEDS: Tadalafil 20 mg TAB (NF) PO SCH (12:13)
[2020-12-04] MEDS: TREPROSTINIL SODIUM SUBCUT SCH (12:14)
[2020-12-04] MEDS: AMBRISENTAN 10 MG PO SCH (12:14)
[2020-12-05] MEDS: [UNRECOGNIZED DRUG - REMARK] SUBCUT SCH ×3 (00:48→15:55)
[2020-12-05 07:08] LABS: Calcium 9.2 mg/dL (8.6-10.3); EGFR African American 45.7 (>60); EGFR Non-African American 37.8 (>60); Potassium 3.6 mmol/L (3.5-5.0)
[2020-12-05 09:01] LABS: ABS Basophils 0.1 10^3/ul (0-0.2); ABS Eosinophils 0.2 10^3/ul (0-0.6); ABS Lymphocytes 0.4 10^3/ul (1.0-4.8); ABS Monocytes 0.2 10^3/ul (0-0.8); ABS Neutrophils 2.7 10^3/ul (1.5-7.7); Eosinophil % 6.1 %; Hematocrit 31 % (35-47); Hemoglobin 10.1 g/dL (12.0-16.0); Lymphocyte % 11.3 %; Mean Corpuscular HGB Conc 32 g/dL (31-36); Mean Corpuscular Hemoglobin 31 pg (27-31); Mean Corpuscular Volume 96 fL (80-97); Mean Platelet Volume 7.3 fL (7.4-10.4); Platelet Count 184 10^3/uL (150-450); Red Blood Count 3.27 10^6 /uL (3.70-4.87); Red Cell Distribution Width 18 % (10-15); White Blood Count 3.5 10^3/uL (3.5-10.8)
[2020-12-05] MEDS ORDERED: Aminophylline 25 MG/ML VIAL ONE (10:32)
[2020-12-05] MEDS ORDERED: Regadenoson 0.4 MG/5 ML SYRINGE ONE (10:32)
[2020-12-05] MEDS: AMBRISENTAN 10 MG PO SCH (12:55)
[2020-12-05] MEDS: Tadalafil 20 mg TAB (NF) PO SCH (12:56)
[2020-12-05] MEDS: TREPROSTINIL SODIUM SUBCUT SCH (12:56)
[2020-12-05 15:53] VITALS: BP 91/48
== END 2020-12-06 00:16 | disposition home or self-care (01) | DRG 641 ==
LOC: ED 22:09 → MEDTELE 12-02 03:39
PROVIDERS: ADMIT Internal Medicine; ATTEND Internal Medicine